=== PATIENT | female | born 1985 | race Caucasian/White ===

== ENCOUNTER 2021-08-18 20:18 | Emergency (ER) | payer OTHER, SELFPAY ==
[2021-08-18 20:22] VITALS: BP 107/60; PULSE 112; RESP 32; TEMP 37.8; O2SAT 100; BMI 33.0
--- NOTE | 2021-08-18 20:44 | XRR_ITS ---
PROCEDURE INFORMATION: Exam: XR Chest Exam date and time: 08/18/2021 8:44 PM Age: 35 years old Clinical indication: Shortness of breath; Additional info: SOB TECHNIQUE: Imaging protocol: XR of the chest. Views: 1 view. Total images: 1 COMPARISON: CT abdomen pelvis w con* [id number] 02/15/2016 2:27 AM FINDINGS: Lungs: Diminished inspiratory effort. No visible active interstitial or alveolar airspace disease. Pleural spaces: No visible pleural effusion. No pneumothorax. Heart/Mediastinum: Cardiac structures and configuration within normal limits. Bones/joints: Mild scoliotic curvature of the spine. Soft tissues: Heavy body habitus. XR/XR chest 1V [id number] IMPRESSION: Diminished inspiratory effort.
--- NOTE | 2021-08-18 20:44 | ECG_ITS ---
[facility] Test Date: 2021-08-18 Pat Name: Bertha Robles Department: Room: Gender: Female Box Toe Buffer: : 1985 Requested By: Jacinto Porras Order Number: [id number] Otis MD: Jai Richard M.D. Measurements Intervals [place] Rate: 110 P: 132 IN: 137 QRS: 186 QRSD: 89 T: 151 QT: 316 QTc: 428 Interpretive Statements SINUS TACHYCARDIA ARM LEADS REVERSED [INVERTED P AND QRS IN I] ABNORMAL RHYTHM ECG No previous ECG available for comparison Electronically Signed On 08-19-2021 14:14:45 LIBRARY CIRCULATION CLERK by Jai Richard M.D. [id number]
--- NOTE | 2021-08-18 20:45 | ED_ITS ---
HPI - Anxiety General: Chief Complaint: Anxiety Stated Complaint: anxiety Time Seen by Provider: 08/18/21 20:22 History of Present Illness: MD complaint: anxiety, heart racing and shortness of breath Onset (ago): hour(s) Symptoms: dyspnea and chest pain Severity: moderate Quality: constant Place: home History of similar episodes: No Relieving factors: medication (ativan by ems 2mg) Associated symptoms: Reports chest pain, chills, fever(s), nausea, short of breath and weakness (generalized); Deny vomiting Review of Systems Const: Reports: fever(s) and chills Card: Reports: chest pain Resp: Reports: dyspnea; Denies: productive cough, non-productive cough, wheezing or stridor GI: Reports: nausea; Denies: abdominal pain or vomiting Neuro: Reports: numbness in extremities PFSH ED PFSH: Surgical History History of cholecystectomy Family History Mother Hypertension Social History Smoking and tobacco status: former smoker Alcohol intake: never Marital status: Number of children: 3 Highest education level completed: Some College, No Degree Female Reproductive History: Date of last menstrual period: 07/31/19 Para: 3 Physical Exam Const: GENERAL APPEARANCE: cooperative and anxious; not frail appearing ORIENTATION/CONSCIOUSNESS: Yes awake, Yes oriented to person, Yes oriented to place and Yes oriented to time HENMT: COMMON NORMALS: normocephalic and atraumatic HEAD & SCALP: normocephalic and atraumatic Eye: COMMON NORMALS: Equal, round and reactive pupils present PUPIL: Yes Equal, round and reactive pupils present Chest: COMMONS NORMALS: normal inspection of the chest CHEST: No tenderness Resp: COMMON NORMALS: clear to auscultation bilaterally EFFORT & INSPECTION: Yes tachypneic, No respiratory distress and Yes uses accessory muscles AUSCULTATION: clear to auscultation bilaterally and lung sounds not diminished Cardio: COMMON NORMALS: regular rhythm RATE: tachycardic RHYTHM: regular rhythm GI: COMMON NORMALS: Normal to inspection, nondistended, normoactive bowel sounds present, Soft to palpation and non-tender PALPATION: Yes Soft to palpation Neuro: SENSORIUM/ORIENTATION: Yes oriented to person, Yes oriented to place and Yes oriented to time Course Vital Signs: Vital signs: Vital Signs Temperature 100.1 F H 08/18/21 20:22 Pulse Rate 82 08/18/21 22:38 Respiratory Rate 18 08/18/21 22:38 Blood Pressure 105/49 08/18/21 22:38 Pulse Oximetry 100 08/18/21 22:38 MDM - Anxiety MDM Narrative: Medical decision making narrative: 35-year-old female presenting hyperventilating. She states she began to have trouble breathing, has been congested today, and has not been able to get warm. She notes chills most of the day. She denies any significant cough. She has had some chest pain on and off. She was found to be hyperventilating with an end-tidal CO2 of 14 by EMS. Saturations are 100% on room air. She was given 2 mg of Ativan IV in the ambulance. This helped her symptoms to some degree. She is still very anxious, on arrival, hyperventilating with carpopedal spasm and circumoral pallor. She was given 3 mg of Haldol, with resolution of her symptoms essentially. She has been up to the bathroom, and has done well. Saturations remain 100%. She is no longer tachycardic. Her CBC is normal. Her potassium is 3.1. Her bicarbonate level is 16 on arrival. Her chest x-ray shows poor inspiration and is otherwise negative. Her D-dimer is essentially negative at 0.7 her temperature is 100.1. She is swab for COVID-19 by PCR, and will be discharged. Lab Data: Labs: Lab Results 08/18/21 08/18/21 08/18/21 20:59 20:59 20:59 WBC 5.2 10^3/uL 10^3/ uL (4.0-10.0) RBC 4.02 10^6/uL L 10 ^6/uL (4.1-5.3) Hgb 12.9 g/dL g/dL (11.5-15.3) Hct 37.1 % % (37.0-47.0) MCV 92.3 fl fl (81-99) MCH 32.1 pg pg (28.0-34.0) MCHC 34.8 g/dL g/dL (30.0-36.0) RDW 11.9 % L % (12.1-15.1) Plt Count 255 10^3/cmm 10^3 /cmm (130-400) MPV 11.1 fL H fL (7.4-10.4) Neut % (Auto) 69.5 % % Lymph % (Auto) 16.9 % % [place] % (Auto) 12.2 % % Eos % (Auto) 0.8 % % Baso % (Auto) 0.4 % % Neut # (Auto) 3.59 10^3/uL 10^3 /uL (1.8-7.7) Lymph # (Auto) 0.9 10^3/uL 10^3/ uL (0.8-4.8) [place] # (Auto) 0.6 10^3/uL 10^3/ uL (0.2-0.9) Eos # (Auto) 0.0 10^3/uL 10^3/ uL (0.0-0.8) Baso # (Auto) 0.0 10^3/uL 10^3/ uL (0.0-0.1) Nucleated RBC % (a uto) 0 % % Nucleated RBCs # 0.0 /100WBC /100W BC D-Dimer 0.76 ug/mIFEU H u g/mIFEU (0-0.59) Sodium 136 mmol/L mmol/L (136-145) Potassium 3.1 mmol/L L mmol /L (3.5-5.1) Chloride 100 mmol/L mmol/L (98-107) Carbon Dioxide 16 mmol/L L mmol/ L (22-29) Anion Gap 23.1 H (5-19) BUN 6 mg/dL mg/dL (6-20) Creatinine 0.9 mg/dL mg/dL (0.5-0.9) GFR Calculation 72.1 mL/min L mL/ min (90-130) Glucose 71 mg/dL mg/dL (65-115) Calculated Osmolal ity 278 mOsm/kg L mOs m/kg (285-295) Calcium 9.4 mg/dL mg/dL (8.5-10.5) Total Bilirubin 0.4 mg/dL mg/dL (0.15-1.2) AST 14 U/L U/L (0-32) ALT 10 U/L U/L (0-33) Alkaline Phosphata se 69 IU/L IU/L (35-105) Troponin T Gen 5 n g/L C-Reactive Protein 3.6 mg/L mg/L (0.0-4.9) Total Protein 6.4 g/dL L g/dL (6.6-8.7) Albumin 4.3 g/dL g/dL (3.5-5.2) Globulin 2.1 g/dL g/dL (1.3-4.6) HCG, Qual Urine Color Urine Appearance Urine pH Ur Specific Gravit y Urine Protein Urine Glucose (UA) Urine Ketones Urine Blood Urine Nitrate Urine Bilirubin Urine Urobilinogen Ur Leukocyte Akyli ase Urine Opiates Scre en Ur Barbiturates Sc reen Ur Phencyclidine S crn Ur Amphetamines Sc reen U Benzodiazepines Scrn Urine Cocaine Scre en U Marijuana (THC) Screen Coronavirus 229E ( PCR) SARS-CoV-2 (PCR) 08/18/21 08/18/21 08/18/21 20:59 20:59 21:19 WBC RBC Hgb Hct MCV MCH MCHC RDW Plt Count MPV Neut % (Auto) Lymph % (Auto) [place] % (Auto) Eos % (Auto) Baso % (Auto) Neut # (Auto) Lymph # (Auto) [place] # (Auto) Eos # (Auto) Baso # (Auto) Nucleated RBC % (a uto) Nucleated RBCs # D-Dimer Sodium Potassium Chloride Carbon Dioxide Anion Gap BUN Creatinine GFR Calculation Glucose Calculated Osmolal ity Calcium Total Bilirubin AST ALT Alkaline Phosphata se Troponin T Gen 5 n g/L 7 ng/L ng/L (0-10) C-Reactive Protein Total Protein Albumin Globulin HCG, Qual Negative (Negative) Urine Color Urine Appearance Urine pH Ur Specific Gravit y Urine Protein Urine Glucose (UA) Urine Ketones Urine Blood Urine Nitrate Urine Bilirubin Urine Urobilinogen Ur Leukocyte Kayli ase Urine Opiates Scre en Ur Barbiturates Sc reen Ur Phencyclidine S crn Ur Amphetamines Sc reen U Benzodiazepines Scrn Urine Cocaine Scre en U Marijuana (THC) Screen Coronavirus 229E ( PCR) Not detected (NOT DETECT) SARS-CoV-2 (PCR) Detected A (NOT DETECT) 08/18/21 08/18/21 22:49 22:49 WBC RBC Hgb Hct MCV MCH MCHC RDW Plt Count MPV Neut % (Auto) Lymph % (Auto) [place] % (Auto) Eos % (Auto) Baso % (Auto) Neut # (Auto) Lymph # (Auto) [place] # (Auto) Eos # (Auto) Baso # (Auto) Nucleated RBC % (a uto) Nucleated RBCs # D-Dimer Sodium Potassium Chloride Carbon Dioxide Anion Gap BUN Creatinine GFR Calculation Glucose Calculated Osmolal ity Calcium Total Bilirubin AST ALT Alkaline Phosphata se Troponin T Gen 5 n g/L C-Reactive Protein Total Protein Albumin Globulin HCG, Qual Urine Color Yellow (Yellow) Urine Appearance Clear (CLEAR) Urine pH 6 (5-7) Ur Specific Gravit y 1.005 (1.005-1.030) Urine Protein Neg (Negative) Urine Glucose (UA) Norm (Normal) Urine Ketones Negative (Negative) Urine Blood Neg (Negative) Urine Nitrate Negative (Negative) Urine Bilirubin Neg (Negative) Urine Urobilinogen Norm mg/dL mg/dL (Negative) Ur Leukocyte Kayli ase Negative (Negative) Urine Opiates Scre en Negative ng/mL ng /mL (Negative) Ur Barbiturates Sc reen Negative ng/mL ng /mL (Negative) Ur Phencyclidine S crn Negative ng/mL ng /mL (Negative) Ur Amphetamines Sc reen Negative ng/mL ng /mL (Negative) U Benzodiazepines Scrn Positive ng/mL H ng/mL (Negative) Urine Cocaine Scre en Negative ng/mL ng /mL (Negative) U Marijuana (THC) Screen Positive ng/mL H ng/mL (Negative) Coronavirus 229E ( PCR) SARS-CoV-2 (PCR) Discharge Plan Discharge Patient Disposition: Home Clinical Impression: Hyperventilation Upper respiratory tract infection Qualifiers: URI type: unspecified viral URI Qualified Code(s): J06.9 - Acute upper respiratory infection, unspecified Condition: Stable Prescriptions: New Medrol (Arnoldo) 4 mg tablets,dose pack See Rx Instructions .ROUTE .COMPLEX Qty: 21 RF: 0 albuterol sulfate 90 mcg/actuation HFA aerosol inhaler 2 inh INHALATION Q4H PRN (Reason: shortness of breath or wheezing) Qty: 6.7 RF: 1 No Action hydroxyzine HCl 25 mg tablet 25 mg PO BID PRN (Reason: anxiety) Qty: 30 RF: 0 wellbutrin PO RF: 0 triamcinolone acetonide 0.1 % cream 1 applic topical BID 7 Days Qty: 30 RF: 0 methylprednisolone [Medrol (Arnoldo)] 4 mg tablets,dose pack See Rx Instructions PO PER PKG DIR Qty: 21 RF: 0 Discharge Orders: Discharge ED (Routine); Ordered 08/18/21 Ordered By: Jacinto Ba Discharge Diet: Advance as tolerated Discharge Activity: Increase activity as tolerated Patient Instructions: Hyperventilation (ED), Upper Respiratory Infection (ED) Activity Restrictions/Additional Instructions: Return for return of chest pain, worsening shortness of breath despite treatment, inability to control temperature, other concerning symptoms. You have been tested for COVID-19 by PCR. This test takes a while to come back. If it is positive, you will get a call with further instructions. Coding Level of Care Code ED Paediatric Physiotherapist for Chg Fwd Exam Detailed
[2021-08-18] MEDS: haloperidol inj 5 mg/mL INJ 1 mL 3 MG IVP (20:50)
[2021-08-18 21:53] VITALS: BP 103/59; PULSE 109; RESP 13; O2SAT 98
[2021-08-18] MEDS: sodium chloride 0.9% 1,000 ML 999 ML IV (22:05)
[2021-08-18 22:18] LABS: Basophils % 0.4 %; Eosinophils % 0.8 %; Hematocrit 37.1 % (37.0-47.0); Hemoglobin 12.9 g/dL (11.5-15.3); Lymphocytes # 0.9 10^3/uL (0.8-4.8); Lymphocytes % 16.9 %; Mean Corpuscular HGB Conc 34.8 g/dL (30.0-36.0); Mean Corpuscular Hemoglobin 32.1 pg (28.0-34.0); Mean Corpuscular Volume 92.3 fl (81-99); Mean Platelet Volume 11.1 fL (7.4-10.4); Monocytes # 0.6 10^3/uL (0.2-0.9); Monocytes % 12.2 %; Neutrophils # 3.59 10^3/uL (1.8-7.7); Neutrophils % 69.5 %; Nucleated Red Blood Cells % 0 %; Platelet Count 255 10^3/cmm (130-400); Red Blood Count 4.02 10^6/uL (4.1-5.3); Red Cell Distribution Width 11.9 % (12.1-15.1); White Blood Count 5.2 10^3/uL (4.0-10.0)
[2021-08-18 22:23] LABS: HCG, Serum Qual Negative (Negative)
[2021-08-18] MEDS: acetaminophen 500 mg Tablet 1000 MG PO (22:24)
[2021-08-18 22:30] LABS: Troponin T (5th) Once 7 ng/L (0-10)
[2021-08-18 22:31] LABS: Alanine Aminotransferase 10 U/L (0-33); Albumin Level 4.3 g/dL (3.5-5.2); Alkaline Phosphatase 69 IU/L (35-105); Anion Gap 23.1 (5-19); Aspartate Amino Transferase 14 U/L (0-32); Blood Urea Nitrogen 6 mg/dL (6-20); C Reactive Protein 3.6 mg/L (0.0-4.9); Calcium 9.4 mg/dL (8.5-10.5); Carbon Dioxide 16 mmol/L (22-29); Chloride 100 mmol/L (98-107); Globulin 2.1 g/dL (1.3-4.6); Glomerular Filtration Rate 72.1 mL/min (90-130); Glucose 71 mg/dL (65-115); Osmolality Calculated 278 mOsm/kg (285-295); Potassium 3.1 mmol/L (3.5-5.1); Sodium 136 mmol/L (136-145); Total Bilirubin 0.4 mg/dL (0.15-1.2); Total Protein 6.4 g/dL (6.6-8.7)
[2021-08-18 22:36] LABS: D Dimer 0.76 ug/mIFEU (0-0.59)
[2021-08-18 22:38] VITALS: BP 105/49; PULSE 82; RESP 18; O2SAT 100
[2021-08-18 23:14] LABS: Add Urine Microscopic? NO; Charge for UA Resulting for Rev
[2021-08-18 23:22] LABS: Bilirubin Urine Neg (Negative); Blood Urine Neg (Negative); Glucose Urine UA Norm (Normal); Ketones Urine Negative (Negative); Leukocyte Esterase Urine Negative (Negative); Nitrate Urine Negative (Negative); Protein Urine Neg (Negative); Specific Gravity, Urine 1.005 (1.005-1.030); Urine Appearance Clear (CLEAR); Urine Color Yellow (Yellow); Urobilinogen Urine Norm (Negative); pH Urine 6 (5-7)
[2021-08-18 23:30] LABS: Amphetamines Screen Urine Negative (Negative); Barbiturates Screen Urine Negative (Negative); Benzodiazepines Screen Urine Positive (Negative); Cocaine Screen Urine Negative (Negative); Opiate Screen Urine Negative (Negative); PCP Screen Urine Negative (Negative); THC Screen Urine Positive (Negative)
[2021-08-19 00:01] LABS: Adenovirus Not Detected (NOT DETECT); Chlamydia Pneumoniae Not Detected (NOT DETECT); Coronavirus 229E,HKU1,NL63,OC4 Not Detected (NOT DETECT); Human Metapneumovirus Not Detected (NOT DETECT); Human Rhinovirus/Enterovirus Not Detected (NOT DETECT); Influenza A Not Detected (NOT DETECT); Influenza A H1 Not Detected (NOT DETECT); Influenza A H1-2009 Not Detected (NOT DETECT); Influenza A H3 Not Detected (NOT DETECT); Influenza B Not Detected (NOT DETECT); Mycoplasma Pneumoniae Not Detected (NOT DETECT); Parainfluenza Virus Type 1 Not Detected (NOT DETECT); Parainfluenza Virus Type 2 Not Detected (NOT DETECT); Parainfluenza Virus Type 3 Not Detected (NOT DETECT); Parainfluenza Virus Type 4 Not Detected (NOT DETECT); Respiratory Syncytial Virus A Not Detected (NOT DETECT); Respiratory Syncytial Virus B Not Detected (NOT DETECT); SARS-COV-2 Detected (NOT DETECT)
--- NOTE | 2021-08-19 08:42 | PC.NURSE ---
Left Voicemail, to return call
--- NOTE | 2021-08-19 09:37 | DCPLANNER ---
patient access manager had message to schedule an outpatient MCA infusion. patient access manager had order signed order faxed to centralized scheduling, who will call patient with appointment information.
--- NOTE | 2021-08-19 16:41 | PC.NURSE ---
Pt informed of COVID (+), and case management will set up COVID infusion
== END 2021-08-18 23:25 | disposition home or self-care (01) ==
PROVIDERS: Emergency Provider Emergency Medicine
DX: R06.4 Hyperventilation (principal); U07.1 COVID-19; Z87.891 Personal history of nicotine dependence
CPT/HCPCS: 71045; 80053; 80306; 81003; 84484; 84703; 85025; 85378; 86140; 87635; 93005; 96361; 96374; 99284; J1630; J7030

== ENCOUNTER → 2022-03-08 09:44 | Outpatient (BNVA) | payer OTHER, SELFPAY | PROVIDERS: PCP Family Medicine; Visit Provider Family Medicine | DX: Z34.90 Encounter for supervision of normal pregnancy, unspecified, unspecified trimester (principal); Z34.80 Encounter for supervision of other normal pregnancy, unspecified trimester | CPT/HCPCS: 80307; 81000; 81025; 84443; 85025; 85027; 86592; 86762; 86850; 86900; 87086; 87340; 87491; 87591; 87806 ==

== ENCOUNTER → 2022-03-09 11:31 | Outpatient (BNVA) | payer OTHER, SELFPAY | PROVIDERS: PCP Family Medicine; Visit Provider Family Medicine | DX: Z34.90 Encounter for supervision of normal pregnancy, unspecified, unspecified trimester (principal); Z34.80 Encounter for supervision of other normal pregnancy, unspecified trimester | CPT/HCPCS: 85025; 87624 ==

== ENCOUNTER 2022-03-16 09:51 | Emergency (ER) | payer OTHER, SELFPAY ==
[2022-03-16] VITALS (7 sets, daily range): BP systolic 98–119; BP diastolic 65–81; PULSE 97–117; RESP 16–22; TEMP 36.8–39; O2SAT 95–100; BMI 31.3
--- NOTE | 2022-03-16 10:15 | PC.NURSE ---
ERP notified of VS and temp no new orders at this time.
--- NOTE | 2022-03-16 10:34 | XR_ITS ---
WS: [id number] Portable AP upright chest, 03/16/2022 Clinical Data: sob Comparison: Portable chest, 08/18/2021. Findings: No nodules, masses or effusions are seen. The heart is normal. The pulmonary vascularity is not increased. No pneumonia or pneumothorax is seen. XR/XR chest 1V portable [id number] Impression: Negative chest.
[2022-03-16 13:03] LABS: Basophils % 0.2 %; Eosinophils % 0.3 %; Hematocrit 38.3 % (37.0-47.0); Lymphocytes # 0.4 10^3/uL (0.8-4.8); Lymphocytes % 6.1 %; Mean Corpuscular HGB Conc 33.9 g/dL (30.0-36.0); Mean Corpuscular Hemoglobin 32.7 pg (28.0-34.0); Mean Corpuscular Volume 96.2 fl (81-99); Mean Platelet Volume 10.3 fL (7.4-10.4); Monocytes # 0.5 10^3/uL (0.2-0.9); Neutrophils # 4.91 10^3/uL (1.8-7.7); Neutrophils % 85.1 %; Nucleated Red Blood Cells % 0 %; Platelet Count 241 10^3/cmm (130-400); Red Blood Count 3.98 10^6/uL (4.1-5.3); Red Cell Distribution Width 12.3 % (12.1-15.1); White Blood Count 5.8 10^3/uL (4.0-10.0)
[2022-03-16 13:13] LABS: Add Urine Microscopic? NO; Charge for UA Resulting for Rev
[2022-03-16 13:15] LABS: Lactate (Lactic Acid level) 0.7 mmol/L (0.5-2.2)
[2022-03-16 13:16] LABS: Alanine Aminotransferase 12 U/L (0-33); Albumin Level 4.2 g/dL (3.5-5.2); Alkaline Phosphatase 73 U/L (35-105); Anion Gap 17.6 (5-19); Aspartate Amino Transferase 18 U/L (0-32); Blood Urea Nitrogen 6 mg/dL (6-20); Carbon Dioxide 21 mmol/L (22-29); Chloride 97 mmol/L (98-107); Globulin 2.9 g/dL (1.3-4.6); Glomerular Filtration Rate 114.4 mL/min (90-130); Glucose 87 mg/dL (65-115); Osmolality Calculated 271 mOsm/kg (285-295); Potassium 3.6 mmol/L (3.5-5.1); Sodium 132 mmol/L (136-145); Total Bilirubin 0.3 mg/dL (0.15-1.2); Total Protein 7.1 g/dL (6.6-8.7)
[2022-03-16 13:17] LABS: Bilirubin Urine Neg (Negative); Blood Urine Neg (Negative); Glucose Urine UA Norm (Normal); Ketones Urine 2+ (Negative); Leukocyte Esterase Urine Negative (Negative); Nitrate Urine Negative (Negative); Protein Urine Neg (Negative); Specific Gravity, Urine 1.015 (1.005-1.030); Urine Appearance Clear (CLEAR); Urine Color Yellow (Yellow); Urobilinogen Urine 1 mg/dL (Negative); pH Urine 6 (5-7)
[2022-03-16 13:32] LABS: SARS Covid-2 Antigen Positive (Negative)
--- NOTE | 2022-03-16 14:49 | PC.NURSE ---
Patient a/o, placed on monitor when brought back to ER 4. Patient c/o feeling congested, not feeling well and has been weak. Patient states she has had a headache since 9 am. Placed in isolation due to positive covid test completed while in triage.
--- NOTE | 2022-03-16 15:04 | W.ED.COVID ---
HPI - COVID General: Chief Complaint: COVID symptoms Stated Complaint: SOB,chest pains, 13 weeks preg Time Seen by Provider: 03/16/22 14:51 Source: patient Mode of arrival: ambulatory Limitations: no limitations Triage information: Has fever, cough or shortness of breath. Exposure to COVID + person last 14 days History of Present Illness: This patient presents to the emergency department for concerns about possible COVID-19. She states she felt body aches and fever and chills yesterday. 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 She is normally in good health and takes no daily medications other than vitamins. She is approximately 13 weeks . She is A0. She denies pelvic pain, uterine cramping, vaginal bleeding. He states she has body aches decreased appetite and nausea. No cough or shortness of breath. No asthma history. He states she did have gestational diabetes with one of her pregnancies as well as thyroid problems but does not take any medication for either of those conditions chronically. MD complaint: reported COVID exposure COVID 19 common symptoms: positive fever(s), chills, body aches, headache(s), loss of sense of smell and/or taste, nasal congestion and nausea; negative non-productive cough, productive cough, dyspnea, throat pain, vomiting or diarrhea COVID 19 other sytmptoms: negative chest pain Severity: moderate Treatment prior to arrival: none COVID Results: SARS-CoV-2 Antigen (Rapid) Positive (Negative) H 03/16/22 13:05 SARS-CoV-2 (PCR) Detected (NOT DETECT) A 08/18/21 21:19 Coronavirus Type 229E (PCR) Not detected (NOT DETECT) 08/18/21 21:19 Review of Systems Const: Reports: fever(s), chills and body aches Eyes: Denies: change in vision ENMT: Reports: nasal congestion; Denies: throat pain or odynophagia Card: Denies: chest pain, palpitations or irregular heart rhythm Resp: Denies: dyspnea, productive cough or non-productive cough GI: Reports: nausea; Denies: abdominal pain, vomiting or diarrhea : Denies: flank pain, difficulty voiding, dysuria, urinary frequency or vaginal bleeding Musc: Denies: neck pain, back pain, extremity pain or extremity swelling Skin/Breast: Denies: rash Neuro: Reports: headache(s); Denies: numbness in extremities or weakness in extremities Endo: Denies: polyuria or polydipsia Marco/Lymph: Denies: easy bruising PFSH ED PFSH: Medical History Depression Hx of bipolar disorder Surgical History History of cholecystectomy Family History Mother Hypertension Social History Smoking and tobacco status: former smoker Alcohol intake: never Marital status: Number of children: 3 Highest education level completed: Some College, No Degree Female Reproductive History: Date of last menstrual period: 12/12/21 Para: 3 Physical Exam Narrative: EXAM NARRATIVE: Makes good eye contact. Appears ill but answers questions in a goal-directed fashion. Const: COMMON NORMALS: average body habitus and patient oriented x3 GENERAL APPEARANCE: cooperative HENMT: COMMON NORMALS: normocephalic, atraumatic, Normal nasal mucous membranes and turbinates present, moist oral mucous membranes and oropharynx normal HEAD & SCALP: normocephalic and atraumatic NOSE: Normal nasal mucous membranes and turbinates present Eye: COMMON NORMALS: Equal, round and reactive pupils present, EOMs intact bilaterally and conjunctivae normal CONJUNCTIVA: Yes conjunctivae normal PUPIL: Yes Equal, round and reactive pupils present Neck/C-Spine: COMMON NORMALS: full ROM, no lymphadenopathy, supple and no meningeal signs Chest: COMMONS NORMALS: normal inspection of the chest Resp: COMMON NORMALS: normal respiratory effort, No use of accessory muscles and clear to auscultation bilaterally EFFORT & INSPECTION: Yes able to speak in complete sentences AUSCULTATION: clear to auscultation bilaterally Cardio: COMMON NORMALS: regular rate, regular rhythm, No murmurs present (Cardio) and Peripheral pulses 2+ throughout RATE: regular rate RHYTHM: regular rhythm PERIPHERAL PULSES: Peripheral pulses 2+ throughout GI: COMMON NORMALS: Normal to inspection, nondistended, normoactive bowel sounds present, Soft to palpation, non-tender and no masses PALPATION: Yes Soft to palpation : COMMON NORMALS: Yes no CVA tenderness BLADDER/KIDNEY EXAM: Yes no CVA tenderness Back/Pelvis: COMMON NORMALS: no CVA tenderness, thoracic and lumbar spine normal to inspection, no thoracic nor lumbar tenderness and thoraco-lumbar ROM normal Extremity: COMMON NORMALS: normal to inspection, full ROM, capillary refill normal, no clubbing, cyanosis or edema, no calf tenderness and no pedal edema Neuro: COMMON NORMALS: patient oriented x3, moves all extremities, no focal motor deficits and no sensory deficits noted MENINGEAL SIGNS: Yes no meningeal signs CRANIAL NERVES: Yes CN normal except as noted SPEECH: speech normal Psych: COMMON NORMALS: mental status grossly normal Skin: COMMON NORMALS: no rashes or lesions noted, turgor normal, no jaundice and no petechiae GENERAL SKIN EXAM: no rashes or lesions noted and turgor normal Course Reevaluation(s): Reevaluation #1: Patient states she feels considerably better after IV fluids, oral hydration and acetaminophen. She appears to be much more engaged and a improved clinical appearance. Vital signs are noted to be very reassuring with improved blood pressure, decreased heart rate, maintaining O2 saturation. Bedside ultrasound was used to visualize uterus. She was able to visualize a single intrauterine gestation using the phased array probe. heart tones were noted to be in the 1 30-1 50 range. Very active and what appeared to be a normal appearing fetus on a limited ultrasound. We discussed pack paxlovid risk-benefit profile. She voiced understanding of our discussion but declined medication at this time. She prefers symptomatic treatment at home. At this time she is stable and improved and suitable to be monitor at home with return precautions. Time: 16:47 Consultations: Consultation #1: I discussed with Dr. Montoya who provides her OB care. We reviewed her current clinical presentation and potential indications for pack Slo-Bid. He is not opposed to using that medication and is supportive of its use in with significant illness. Time: 15:32 Vital Signs: Vital signs: Vital Signs Temperature 98.9 F 03/16/22 14:11 Pulse Rate 103 H 03/16/22 14:11 Respiratory Rate 16 03/16/22 14:11 Blood Pressure 98/68 03/16/22 14:52 Pulse Oximetry 95 03/16/22 14:53 Oxygen Delivery Me thod 03/16/22 14:53 MDM - COVID Medical Decision Making 36-year-old G4 para 3 at 13 weeks positive for COVID-19. She was evaluated and given IV fluids and transition to p.o. intake acetaminophen for body aches and headache. Clinically stable and improved. Discussion was had regarding monoclonal antibody treatment which she declined at this time. Her OB provider was also consulted during this ED visit. Stable for outpatient treatment. Medical Records I reviewed the patient's medical records. Lab Data I reviewed the patient's lab results. : 03/16/22 12:47 03/16/22 12:47 Radiology Impressions Chest X-Ray 03/16/22 10:34 Impression: Negative chest. Laboratory Results WBC 5.8 10^3/uL (4.0-10.0) 03/16/22 12:47 RBC 3.98 10^6/uL (4.1-5.3) L 03/16/22 12:47 Hgb 13.0 g/dL (11.5-15.3) 03/16/22 12:47 Hct 38.3 % (37.0-47.0) 03/16/22 12:47 MCV 96.2 fl (81-99) 03/16/22 12:47 MCH 32.7 pg (28.0-34.0) 03/16/22 12:47 MCHC 33.9 g/dL (30.0-36.0) 03/16/22 12:47 RDW 12.3 % (12.1-15.1) 03/16/22 12:47 Plt Count 241 10^3/cmm (130-400) 03/16/22 12:47 MPV 10.3 fL (7.4-10.4) 03/16/22 12:47 Neut % (Auto) 85.1 % 03/16/22 12:47 Lymph % (Auto) 6.1 % 03/16/22 12:47 [place] % (Auto) 8.0 % 03/16/22 12:47 Eos % (Auto) 0.3 % 03/16/22 12:47 Baso % (Auto) 0.2 % 03/16/22 12:47 Neut # (Auto) 4.91 10^3/uL (1.8-7.7) 03/16/22 12:47 Lymph # (Auto) 0.4 10^3/uL (0.8-4.8) L 03/16/22 12:47 [place] # (Auto) 0.5 10^3/uL (0.2-0.9) 03/16/22 12:47 Eos # (Auto) 0.0 10^3/uL (0.0-0.8) 03/16/22 12:47 Baso # (Auto) 0.0 10^3/uL (0.0-0.1) 03/16/22 12:47 Nucleated RBC % (auto) 0 % 03/16/22 12:47 Nucleated RBCs # 0.0 /100WBC 03/16/22 12:47 Sodium 132 mmol/L (136-145) L 03/16/22 12:47 Potassium 3.6 mmol/L (3.5-5.1) 03/16/22 12:47 Chloride 97 mmol/L (98-107) L 03/16/22 12:47 Carbon Dioxide 21 mmol/L (22-29) L 03/16/22 12:47 Anion Gap 17.6 (5-19) 03/16/22 12:47 BUN 6 mg/dL (6-20) 03/16/22 12:47 Creatinine 0.6 mg/dL (0.5-0.9) 03/16/22 12:47 GFR Calculation 114.4 mL/min (90-130) 03/16/22 12:47 Glucose 87 mg/dL (65-115) 03/16/22 12:47 Calculated Osmolality 271 mOsm/kg (285-295) L 03/16/22 12:47 Lactate 0.7 mmol/L (0.5-2.2) 03/16/22 12:47 Calcium 9.0 mg/dL (8.5-10.5) 03/16/22 12:47 Total Bilirubin 0.3 mg/dL (0.15-1.2) 03/16/22 12:47 AST 18 U/L (0-32) 03/16/22 12:47 ALT 12 U/L (0-33) 03/16/22 12:47 Alkaline Phosphatase 73 U/L (35-105) 03/16/22 12:47 Total Protein 7.1 g/dL (6.6-8.7) 03/16/22 12:47 Albumin 4.2 g/dL (3.5-5.2) 03/16/22 12:47 Globulin 2.9 g/dL (1.3-4.6) 03/16/22 12:47 Urine Color Yellow (Yellow) 03/16/22 13:00 Urine Appearance Clear (CLEAR) 03/16/22 13:00 Urine pH 6 (5-7) 03/16/22 13:00 Ur Specific [place] 1.015 (1.005-1.030) 03/16/22 13:00 Urine Protein Neg (Negative) 03/16/22 13:00 Urine Glucose (UA) Norm (Normal) 03/16/22 13:00 Urine Ketones 2+ (Negative) H 03/16/22 13:00 Urine Blood Neg (Negative) 03/16/22 13:00 Urine Nitrate Negative (Negative) 03/16/22 13:00 Urine Bilirubin Neg (Negative) 03/16/22 13:00 Urine Urobilinogen 1 mg/dL (Negative) H 03/16/22 13:00 Ur Leukocyte Esterase Negative (Negative) 03/16/22 13:00 SARS-CoV-2 Ag (Rapid) Positive (Negative) H 03/16/22 13:05 SARS-CoV-2 Antigen (Rapid) Positive (Negative) H 03/16/22 13:05 SARS-CoV-2 (PCR) Detected (NOT DETECT) A 08/18/21 21:19 Coronavirus Type 229E (PCR) Not detected (NOT DETECT) 08/18/21 21:19 Discharge Plan Discharge Patient Disposition: Home Clinical Impression: COVID-19, First trimester Condition: Stable Prescriptions: No Action Flintstones Plus Iron 15 mg iron Tablet,Chewable 2 tab PO DAILY Gummies 400 mcg-35 mg- 25 mg-5 mg Tablet,Chewable 2 tab PO DAILY Discharge Orders: Discharge ED (Routine); Ordered 03/16/22 Ordered By: Orville Roldan Referrals: Vern Montoya MD [Primary Care Provider] - Discharge Diet: Advance as tolerated Discharge Activity: Increase activity as tolerated Patient Instructions: COVID-19 (Coronavirus Disease 2019) (ED), Opioid Safety Activity Restrictions/Additional Instructions: Make sure you are drinking at least 2 quarts of fluid to include such things as water, half-strength apple juice, sports drinks daily. Kwong to a regular diet as tolerated. 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 Follow-up with the recommended isolation for COVID-19 on the CDC website. Coding Level of Care Code ED Integration Software Engineer for Lucian Fwd Exam Comprehensive
[2022-03-16] MEDS: sodium chloride 0.9% 1,000 ML 999 ML IV (15:37)
[2022-03-16] MEDS: acetaminophen 325 mg Tablet 650 MG PO (15:37)
[2022-03-16] MEDS: ondansetron 2 mg/ML SDV 2 mL 4 MG IVP (15:37)
--- NOTE | 2022-03-16 17:19 | ED_ITS ---
HPI - COVID General: Chief Complaint: COVID symptoms Stated Complaint: SOB,chest pains, 13 weeks preg Time Seen by Provider: 03/16/22 14:51 Source: patient Mode of arrival: ambulatory Limitations: no limitations Triage information: Has fever, cough or shortness of breath . Exposure to COVID + person last 14 days History of Present Illness: Severity: moderate COVID Results: SARS-CoV-2 Antigen (Rapid) Positive (Negative) H 03/16/22 13:0 5 SARS-CoV-2 (PCR) Detected (NOT DETECT) A 08/18/21 21:19 Coronavirus Type 229E (PCR) Not detected (NOT DETECT) 08/18/21 21:19 [facility] ED PFSH: Medical History Depression Hx of bipolar disorder Surgical History History of cholecystectomy Family History Mother Hypertension Social History Smoking and tobacco status: former smoker Alcohol intake: never Marital status: Number of children: 3 Highest education level completed: Some College, No Degree Female Reproductive History: Date of last menstrual period: 12/12/21 Para: 3 Course Vital Signs: Vital signs: Vital Signs Temperature 98.9 F 03/16/22 14:11 Pulse Rate 103 H 03/16/22 14:11 Respiratory Rate 16 03/16/22 14:11 Blood Pressure 98/68 03/16/22 14:52 Pulse Oximetry 95 03/16/22 14:53 Oxygen Delivery Me thod 03/16/22 14:53 MDM - COVID Lab Data : 03/16/22 12:47 03/16/22 12:47 Radiology Impressions Chest X-Ray 03/16/22 10:34 Impression: Negative chest. Laboratory Results WBC 5.8 10^3/uL (4.0-10.0) 03/16/22 12:47 RBC 3.98 10^6/uL (4.1-5.3) L 03/16/22 12:47 Hgb 13.0 g/dL (11.5-15.3) 03/16/22 12:47 Hct 38.3 % (37.0-47.0) 03/16/22 12:47 MCV 96.2 fl (81-99) 03/16/22 12:47 MCH 32.7 pg (28.0-34.0) 03/16/22 12:47 MCHC 33.9 g/dL (30.0-36.0) 03/16/22 12:47 RDW 12.3 % (12.1-15.1) 03/16/22 12:47 Plt Count 241 10^3/cmm (130-400) 03/16/22 12:47 MPV 10.3 fL (7.4-10.4) 03/16/22 12:47 Neut % (Auto) 85.1 % 03/16/22 12:47 Lymph % (Auto) 6.1 % 03/16/22 12:47 [place] % (Auto) 8.0 % 03/16/22 12:47 Eos % (Auto) 0.3 % 03/16/22 12:47 Baso % (Auto) 0.2 % 03/16/22 12:47 Neut # (Auto) 4.91 10^3/uL (1.8-7.7) 03/16/22 12:47 Lymph # (Auto) 0.4 10^3/uL (0.8-4.8) L 03/16/22 12:47 [place] # (Auto) 0.5 10^3/uL (0.2-0.9) 03/16/22 12:47 Eos # (Auto) 0.0 10^3/uL (0.0-0.8) 03/16/22 12:47 Baso # (Auto) 0.0 10^3/uL (0.0-0.1) 03/16/22 12:47 Nucleated RBC % (auto) 0 % 03/16/22 12:47 Nucleated RBCs # 0.0 /100WBC 03/16/22 12:47 Sodium 132 mmol/L (136-145) L 03/16/22 12:47 Potassium 3.6 mmol/L (3.5-5.1) 03/16/22 12:47 Chloride 97 mmol/L (98-107) L 03/16/22 12:47 Carbon Dioxide 21 mmol/L (22-29) L 03/16/22 12:47 Anion Gap 17.6 (5-19) 03/16/22 12:47 BUN 6 mg/dL (6-20) 03/16/22 12:47 Creatinine 0.6 mg/dL (0.5-0.9) 03/16/22 12:47 GFR Calculation 114.4 mL/min (90-130) 03/16/22 12:47 Glucose 87 mg/dL (65-115) 03/16/22 12:47 Calculated Osmolality 271 mOsm/kg (285-295) L 03/16/22 12:47 Lactate 0.7 mmol/L (0.5-2.2) 03/16/22 12:47 Calcium 9.0 mg/dL (8.5-10.5) 03/16/22 12:47 Total Bilirubin 0.3 mg/dL (0.15-1.2) 03/16/22 12:47 AST 18 U/L (0-32) 03/16/22 12:47 ALT 12 U/L (0-33) 03/16/22 12:47 Alkaline Phosphatase 73 U/L (35-105) 03/16/22 12:47 Total Protein 7.1 g/dL (6.6-8.7) 03/16/22 12:47 Albumin 4.2 g/dL (3.5-5.2) 03/16/22 12:47 Globulin 2.9 g/dL (1.3-4.6) 03/16/22 12:47 Urine Color Yellow (Yellow) 03/16/22 13:00 Urine Appearance Clear (CLEAR) 03/16/22 13:00 Urine pH 6 (5-7) 03/16/22 13:00 Ur Specific [place] 1.015 (1.005-1.030) 03/16/22 13:00 Urine Protein Neg (Negative) 03/16/22 13:00 Urine Glucose (UA) Norm (Normal) 03/16/22 13:00 Urine Ketones 2+ (Negative) H 03/16/22 13:00 Urine Blood Neg (Negative) 03/16/22 13:00 Urine Nitrate Negative (Negative) 03/16/22 13:00 Urine Bilirubin Neg (Negative) 03/16/22 13:00 Urine Urobilinogen 1 mg/dL (Negative) H 03/16/22 13:00 Ur Leukocyte Esterase Negative (Negative) 03/16/22 13:00 SARS-CoV-2 Ag (Rapid) Positive (Negative) H 03/16/22 13:05 SARS-CoV-2 Antigen (Rapid) Positive (Negative) H 03/16/22 13:0 5 SARS-CoV-2 (PCR) Detected (NOT DETECT) A 08/18/21 21:19 Coronavirus Type 229E (PCR) Not detected (NOT DETECT) 08/18/21 21:19 Discharge Plan Discharge Patient Disposition: Home Clinical Impression: COVID-19, First trimester Condition: Stable Prescriptions: No Action Flintstones Plus Iron 15 mg iron Tablet,Chewable 2 tab PO DAILY Gummies 400 mcg-35 mg- 25 mg-5 mg Tablet,Chewable 2 tab PO DAILY Discharge Orders: Discharge ED (Routine); Ordered 03/16/22 Ordered By: Orville Roldan Referrals: Vern Montoya MD [Primary Care Provider] - Discharge Diet: Advance as tolerated Discharge Activity: Increase activity as tolerated Patient Instructions: COVID-19 (Coronavirus Disease 2019) (ED), Opioid Safety Activity Restrictions/Additional Instructions: Make sure you are drinking at least 2 quarts of fluid to include such things as water, half-strength apple juice, sports drinks daily. Kwong to a regular diet as tolerated. If you develop vaginal bleeding, pelvic pain, shortness of breath, any other concerns return to this or the nearest emergency department otherwise follow-up with your watch and clock repairer as scheduled. Follow-up with the recommended isolation for COVID-19 on the CDC website. Coding Level of Care Code ED Specialist Field Engineer for Lucian [employer]
--- NOTE | 2022-03-16 17:50 | PC.NURSE ---
Discharge instructions reviewed with patient including following cdc guidelines for covid, bedside us completed by doctor and patient expressed assurance that all was well as she had previously expressed concern about little movement. INT dc'd and patient ambulated out. Personal belongings sent with patient.
== END 2022-03-16 17:54 | disposition home or self-care (01) ==
PROVIDERS: Emergency Medicine; Emergency Provider Emergency Medicine; PCP Family Medicine
DX: O98.511 Other viral diseases complicating pregnancy, first trimester (principal); U07.1 COVID-19; Z3A.13 13 weeks gestation of pregnancy; Z87.891 Personal history of nicotine dependence
CPT/HCPCS: 36415; 71045; 80053; 81003; 83605; 85025; 87426; 96374; 99284; J2405; J7030

== ENCOUNTER → 2022-04-06 09:47 | Outpatient (BNVA) | payer OTHER, SELFPAY | PROVIDERS: PCP Family Medicine; Visit Provider Family Medicine | DX: Z34.80 Encounter for supervision of other normal pregnancy, unspecified trimester; U07.1 COVID-19 | CPT/HCPCS: 80307; 85025; 85027 ==

== ENCOUNTER → 2022-04-30 12:47 | Outpatient (BNVA) | payer OTHER, SELFPAY | PROVIDERS: PCP Family Medicine; Visit Provider Family Medicine | DX: R30.0 Dysuria (principal); I10 Essential (primary) hypertension; Z34.80 Encounter for supervision of other normal pregnancy, unspecified trimester | CPT/HCPCS: 81000; 82570; 84156 ==

== ENCOUNTER → 2022-05-03 12:05 | Outpatient (BNVA) | payer OTHER, SELFPAY | PROVIDERS: PCP Family Medicine; Visit Provider Family Medicine | DX: Z34.80 Encounter for supervision of other normal pregnancy, unspecified trimester (principal) | CPT/HCPCS: 76805 ==

== ENCOUNTER → 2022-05-31 11:07 | Outpatient (BNVA) | payer OTHER, SELFPAY | PROVIDERS: PCP Family Medicine; Visit Provider Family Medicine | DX: Z34.92 Encounter for supervision of normal pregnancy, unspecified, second trimester (principal); Z3A.24 24 weeks gestation of pregnancy | CPT/HCPCS: 76816 ==

== ENCOUNTER → 2022-06-04 08:56 | Outpatient (BNVA) | payer OTHER, SELFPAY | PROVIDERS: PCP Family Medicine; Visit Provider Family Medicine | DX: Z34.80 Encounter for supervision of other normal pregnancy, unspecified trimester (principal); Z51.81 Encounter for therapeutic drug level monitoring; R79.89 Other specified abnormal findings of blood chemistry | CPT/HCPCS: 82950; 83540; 84443; 85025 ==

== ENCOUNTER → 2022-06-27 08:09 | Outpatient (BNVA) | payer OTHER, SELFPAY | PROVIDERS: Visit Provider Family Medicine | DX: Z34.80 Encounter for supervision of other normal pregnancy, unspecified trimester (principal); R79.89 Other specified abnormal findings of blood chemistry; O99.810 Abnormal glucose complicating pregnancy | CPT/HCPCS: 82951; 82952 ==

== ENCOUNTER 2022-07-27 08:05 | Outpatient (CLI) | payer OTHER, SELFPAY ==
--- NOTE | 2022-07-27 08:09 | US_ITS ---
WS: [id number] LIMITED OBSTETRICAL ULTRASOUND HISTORY: Gestational diabetes. COMPARISON: 05/03/2022, 05/31/2022 Presentation: Breech. Cervix: Closed and normal length. Placenta: Posterior, no previa or abruption. Grade: 1 HEART: FHR of 160 BPM. measurements: BPD = 8.1 cm = 32w3d; 32nd percentile. HC = 30.3 cm = 33w5d; 33rd percentile. AC = 28.5 cm = 32w3d; 39th percentile. FL = 6.4 cm = 33w0d; 42nd percentile. YUE: 14.8 cm EFW: 2045 g; 55th %. AGA by ultrasound: 32w6d FLAKITA by ultrasound: 09/15/2022 US/US OB limited [id number] IMPRESSION: 1. Single intrauterine gestation of 32 weeks 6 days with an EDC of 09/15/2022. Appropriate growth since the ultrasound of 05/03/2022. 2. No growth asymmetry. 3. Estimated weight at the 55th percentile for age. 4. Breech.
== END 2022-07-27 08:06 | disposition home or self-care (01) ==
LOC: RAD 08:05
PROVIDERS: PCP Family Medicine; Visit Provider Family Medicine
DX: O24.419 Gestational diabetes mellitus in pregnancy, unspecified control (principal); Z3A.32 32 weeks gestation of pregnancy; O32.1XX0 Maternal care for breech presentation, not applicable or unspecified
CPT/HCPCS: 76815

== ENCOUNTER 2022-08-22 09:07 | Outpatient (CLI) | payer OTHER, SELFPAY ==
--- NOTE | 2022-08-22 09:37 | US_ITS ---
WS: [id number] BIOPHYSICAL PROFILE AMNIOTIC FLUID HISTORY: Gestational DM. YUE BPP COMPARISON: 07/27/2022 Cardiac activity: 150 bpm. Cervix: Not well visualized. Placenta: Posterior, no previa or abruption. Placenta grade: 2 position: Breech. Parameters are as follows: Breathin Movement: 2 Tone: 2 Fluid volume: 2 Amniotic fluid index: 20.3 cm; deep is a vertical pocket is 7.6 cm. US/US OB BPP NST [id number] IMPRESSION: 1. Biophysical profile score: 8/8. 2. Normal amniotic fluid index. 3. Breech position.
== END 2022-08-22 09:08 | disposition home or self-care (01) ==
LOC: RAD 09:08
PROVIDERS: PCP Family Medicine; Visit Provider Family Medicine
DX: O24.419 Gestational diabetes mellitus in pregnancy, unspecified control (principal); I10 Essential (primary) hypertension; Z3A.00 Weeks of gestation of pregnancy not specified
CPT/HCPCS: 76819

== ENCOUNTER → 2022-08-24 11:43 | Outpatient (BNVA) | payer OTHER, SELFPAY | PROVIDERS: PCP Family Medicine; Visit Provider Family Medicine | DX: Z34.80 Encounter for supervision of other normal pregnancy, unspecified trimester (principal) | CPT/HCPCS: 87081 ==

== ENCOUNTER 2022-08-30 21:21 | Inpatient (IN) | payer OTHER, SELFPAY ==
[2022-08-30] VITALS (13 sets, daily range): BP systolic 97–128; BP diastolic 56–80; PULSE 51–92; RESP 16–18; TEMP 36.6–37.1; O2SAT 98–100; BMI 33.8
--- NOTE | 2022-08-30 17:36 | USR_ITS ---
PROCEDURE INFORMATION: Exam: US , Limited Exam date and time: 08/30/2022 6:15 PM Age: 36 years old Clinical indication: complicated by abdominal or pelvic pain; Other: Bilateral pelvic cramping and contractions coming every 2-3 minutes all day. No vaginal bleeding. Note that patient is scheduled for attempted version tomorrow. Gestational age or lmp: 37 w 2 d; ; Additional info: Abdominal pain; malpresentation, rule out abruption, identify presentation LABS AND CLINICAL REPORTS: Last menstrual period start date: 12/12/2021 Gestational age (Established): 37 w 2 d Estimated due date (Established): 09/18/2022 TECHNIQUE: Imaging protocol: Real-time ultrasound of the maternal uterus with image documentation. Exam focused on the clinical indication. COMPARISON: US OB BPP wo NST [id number] 08/22/2022 9:49 AM FINDINGS: Gestation: Live intrauterine gestation. heart rate: 131 bpm presentation: Other:Stuart Breech with spine on materal LEFT. Placenta: Posterior and Right grade 1 placenta without previa. Amniotic fluid: Amniotic fluid volume is high, consistent with polyhydramnios. Amniotic fluid index: YUE is 25.3 cm. MATERNAL: Cervix: Cervical length measures 5.2 cm. US/US OB limited [id number] IMPRESSION: 1. No evidence of placental abruption. 2. Breech lie. 3. YUE measurements equals 25.3 cm consistent with polyhydramnios.
[2022-08-30] MEDS: acetaminophen 500 mg Tablet 1000 MG PO (17:46)
[2022-08-30 18:07] LABS: Protein Urine Neg (Negative); Urine Appearance Hazy (CLEAR); Urine Color Yellow (Yellow); pH Urine 8 (5-7)
[2022-08-30 18:08] LABS: Bilirubin Urine 1+ (Negative); Blood Urine Neg (Negative); Glucose Urine UA Norm (Normal); Ketones Urine 1+ (Negative); Leukocyte Esterase Urine 1+ (Negative); Nitrate Urine Negative (Negative); Sulfosalicylic Acid Urine Negative (Negative); Urobilinogen Urine 1 mg/dL (Negative)
[2022-08-30 18:38] LABS: Add Urine Culture? No; Bacteria Urine TRACE /hpf; RBC Urine RARE /hpf (0-2); Squamous Epithelial Cell Urine 0-4 /hpf (0-5)
--- NOTE | 2022-08-30 19:53 | PM.HP ---
Providers/Chief Complaint Admitting Physician: Vern Montoya MD Primary Care Provider: Vern Montoya MD Chief Complaint: abdominal and back pain History of Present Illness Bertha Robles is a 36 year old @ 37.2 weeks by LMP c/w 20 wk US. Preg is c/b prior baby with meconium aspiration with resp distress, h/o abnormal TSH, depression/anxiety currently off of medications, gDM - diet controlled. The patient presented to labor and delivery on the evening of 08/30/2022 with concerns for contractions and abdominal pain. The patient noted increased contractions starting on the evening of 08/29/2022. There were mild in nature but gradually increase in strength and by the evening of 08/30/2022, she felt that they were becoming quite painful. For this reason she presented to triage. In triage she was noted to be closed thick and high upon presentation. After 1 hour she changed to 1/thick/high. An ultrasound was done and the baby is noted to be in carolee breech positioning. The patient is having contractions every 2 to 4 minutes. She is uncomfortable with them. heart tones are in the mid 150s with moderate variability good accelerations with a category 1 tracing. The patient is nauseous and has had some diarrhea. She has some mild bloody show on exam. She is GBS positive. She has not had leakage of fluid. The patient denies fevers, however she does feel warm and flushed. She denies cough, constipation, dysuria. Medications/Allergies Home Medications Medication Instructions Recorded Confirmed Last Taken Type PNV 153-FA 400 mcg-om3 35 mg-dha 2 tab PO DAILY 03/16/22 08/24/22 Unknown History 25 mg-epa 5 mg-fish oil chew tablet ( Gummies) pediatric multivit no.17-ferrous 2 tab PO DAILY 03/16/22 08/24/22 Unknown History fumarate 15 mg iron chewable tablet blood-glucose meter #1 ea 06/29/22 08/24/22 Unknown Rx Allergies Allergy/AdvReac Type Severity Reaction Status Date / Time adhesive tape Allergy Mild rash Verified 08/30/22 20:01 PFSH Acute PFSH: Medical History Depression Hx of bipolar disorder Surgical History History of cholecystectomy Family History Mother Hypertension Denies family history of Colon cancer Ovarian cancer Diabetes Heart disease Hypercholesteremia Breast cancer Uterine cancer Thyroid disease Stroke Female Reproductive History: Date of last menstrual period: 12/12/21 : 4 Para: 3 Vitals/I&O/Wt Last Vital Signs Temp 98.8 F 08/30/22 17:09 Pulse 92 08/30/22 17:09 Resp 18 08/30/22 17:39 BP 114/80 08/30/22 17:09 Weight last 48 hrs Weight 216 lb Physical Exam Narrative: General: Alert and oriented x3 Eyes: Pupils equal round and reactive to light and accommodation Mouth: Mucous membranes moist, pharynx non-erythematous Cardiac: Regular rate and rhythm without murmurs Lungs: Clear to auscultation bilaterally without wheezes, crackles or rhonchi Abdomen: Soft, non-tender, fundus consistent with gestational age Extremities: +1 pitting edema in the bilateral lower extremities : 08/17/-3/breech, pink bloody show noted on glove. A&P Assessment and plan (1) Breech presentation: The patient has a confirmed carolee breech lie of her infant. She is ilir every 3 to 5 minutes and is in labor with cervical change. It is likely that the GI illness that she has has sent her into labor. Because she is in spontaneous labor and the is in the breech position, we will plan to proceed with a primary low-transverse section. The patient wishes to have a bilateral tubal ligation. She signed paperwork in the office previously. Discussion regarding possible risks of surgery was had with the patient and all questions were answered. The patient is in agreement with proceeding with a primary low-transverse section with bilateral tubal ligation. (2) Supervision of normal intrauterine in multigravida: (3) Gestational diabetes: (4) Gastroenteritis: (5) Positive GBS test: Attestations Medical Necessity Statement*: The patient will be here for greater than 2 midnights due to routine intrapartum and management of labor and delivery with section. Coding Level of Care Code Acute Code for Chg Fwd Diagnoses Breech presentation O32.1XX0 Supervision of normal intrauterine in multigravida Z34.80 Gestational diabetes O24.419 Gastroenteritis K52.9 Positive GBS test B95.1
[2022-08-30 20:00] LABS: Basophils % 0.1 %; Eosinophils # 0.1 10^3/uL (0.0-0.8); Eosinophils % 1.1 %; Hematocrit 36.2 % (37.0-47.0); Hemoglobin 12.1 g/dL (11.5-15.3); Lymphocytes # 1.7 10^3/uL (0.8-4.8); Lymphocytes % 24.2 %; Mean Corpuscular HGB Conc 33.4 g/dL (30.0-36.0); Mean Corpuscular Volume 92.8 fl (81-99); Mean Platelet Volume 11.1 fL (7.4-10.4); Monocytes # 0.5 10^3/uL (0.2-0.9); Monocytes % 6.8 %; Neutrophils # 4.76 10^3/uL (1.8-7.7); Neutrophils % 67.4 %; Nucleated Red Blood Cells % 0 %; Platelet Count 276 10^3/cmm (130-400); Red Cell Distribution Width 12.4 % (12.1-15.1); White Blood Count 7.1 10^3/uL (4.0-10.0)
--- NOTE | 2022-08-30 20:01 | P.ANESASSM_ITS ---
Pre-Anesthetic Assessment Height/Weight: Height 1.7 m Weight 97.976 kg Temp Pulse Resp BP 98.8 F 92 18 114/80 08/30/22 17:09 08/30/22 17:09 08/30/22 17:39 08/30/22 17:09 Preop Diagnosis: breech presentation section for breech presentation Familial anesthetic complications: none Was Beta Hola taken within 24 hours: N/A Was Clonidine taken within 24 hours: N/A Last intake: Intake Last Liquid Date 08/30/22 Last Liquid Time 13:00 Last Solid Date 08/30/22 Last Solid Time 13:00 Social No alcohol and No tobacco Airway Submandibular: within normal limits Cervical ROM: within normal limits Mallampati: Class I Dentition: full Pulmonary None reported CV/HEM None reported None reported Hepatic None reported GI Gastroesophageal Reflux Disease Nausea Metabolic Diabetes Mellitus Musc/skel None reported Neuropsych Bipolar Anesthetic Plan ASA status: 2 Anesthesia: Regional (specify below) Medications/Allergies Home Medications Medication Instructions Recorded Confirmed Last Taken Type blood-glucose meter #1 ea 06/29/22 08/30/22 Unknown Rx Allergies Allergy/AdvReac Type Severity Reaction Status Date / Time adhesive tape Allergy Mild rash Verified 08/30/22 20:01 [facility] Anesthesia Medical History Depression Hx of bipolar disorder Surgical History History of cholecystectomy Family History Mother Hypertension Denies family history of Colon cancer Ovarian cancer Diabetes Heart disease Hypercholesteremia Breast cancer Uterine cancer Thyroid disease Stroke Female Reproductive History Date of last menstrual period: 12/12/21 : 4 Para: 3 Data Anesthesia 08/30/22 19:40 Short CBC 08/30/22 Range/Units 19:40 WBC 7.1 (4.0-10.0) 10^3/uL Hgb 12.1 (11.5-15.3) g/dL Hct 36.2 L (37.0-47.0) % MCV 92.8 (81-99) fl Plt Count 276 (130-400) 10^3/cmm Neut % (Auto) 67.4 % Neut # (Auto) 4.76 (1.8-7.7) 10^3/uL Urine 08/30/22 Range/Units 17:40 Urine Color Yellow (Yellow) Urine Appearance Hazy A (CLEAR) Urine pH 8 H (5-7) Ur Specific [place] 1.020 (1.005-1.030) Urine Protein Neg (Negative) Urine Glucose (UA) Norm (Normal) Urine Ketones 1+ H (Negative) Urine Nitrate Negative (Negative) Urine Bilirubin 1+ H (Negative) Ur Leukocyte Esterase 1+ H (Negative) Urine RBC Rare (0-2) /hpf Urine WBC 5-10 H (0-5) /hpf Cardiac Studies: No Data to Display
[2022-08-30] MEDS: citric acid-sodium citrate 30 mL UDC PO (20:03)
[2022-08-30] MEDS: metoclopramide 5 mg/mL SDV 2 mL 10 MG IVP (20:03)
[2022-08-30] MEDS: lactated ringers 1,000 ML 999 ML IV (20:04)
[2022-08-30] MEDS: famotidine 20 mg/2 mL INJ IVP (20:04)
[2022-08-30] MEDS: ondansetron 2 mg/ML SDV 2 mL 4 MG IVP (20:08)
--- NOTE | 2022-08-30 22:47 | PM.OP ---
Operative Report Date of procedure: August 30, 2022 Pre-op diagnosis: 1. Intrauterine at 37.2 weeks gestation 2. Carolee breech presentation 3. Depression/anxiety 4. Gestational diabetes diet-controlled 5. Presenting in spontaneous labor 6. Polyhydramnios 7. Desiring sterilization Post-op diagnosis: 1. Intrauterine status post primary low-transverse section with bilateral tubal ligation at 37.2 weeks gestation 2. Carolee breech presentation 3. Depression/anxiety 4. Gestational diabetes diet-controlled 5. Presenting in spontaneous labor 6. Polyhydramnios 7. Delivery of healthy female weighing 6 pounds 5 ounces with Apgars of 8 and 8 Post-op findings: 1. Healthy female weighing 6 pounds 5 ounces with Apgars of 8 and 8 2. Intact placenta with central umbilical cord insertion site 3. Polyhydramnios 4. Mild endometriosis on the left ovary and fallopian tube Procedure done: 1. Primary low-transverse section 2. Bilateral tubal ligation Specimens removed/disposition: Placenta discarded Surgeon: Vern Montoya MD Estimated blood loss (mL): 600 IV fluids: 1 L Urine output: 50 mL Complications: None Brief History: Bertha Robles is a 36 year old G4 now P4 status post primary low-transverse section with bilateral tubal ligation@ 37.2 weeks by LMP c/w 20 wk US. Preg is c/b prior baby with meconium aspiration with resp distress, h/o abnormal TSH, depression/anxiety currently off of medications, gDM - diet controlled, carolee breech presentation, polyhydramnios. The patient presented to labor and delivery on the evening of 08/30/2022 with concerns for contractions and abdominal pain.? The patient noted increased contractions starting on the evening of 08/29/2022.? There were mild in nature but gradually increase in strength and by the evening of 08/30/2022, she felt that they were becoming quite painful.? For this reason she presented to triage.? In triage she was noted to be closed thick and high upon presentation.? After 1 hour she changed to 1/thick/high.? An ultrasound was done and the baby was noted to be in carolee breech positioning.? The patient is having contractions every 2 to 4 minutes.? She was uncomfortable with them.? heart tones were in the mid 150s with moderate variability good accelerations with a category 1 tracing.? The patient was nauseous and has had some diarrhea.? She had some mild bloody show on exam.? She was GBS positive.? She had not had leakage of fluid. The patient was taken back for a primary low-transverse section due to being in spontaneous labor with positioning in the carolee breech position. Procedure: After informed consent was obtained, the patient was taken to the operating room and the patient was prepped and draped in a normal sterile fashion in the dorsal supine position.? A spinal was placed and adequate anesthesia was obtained.? At 21:10 on 08/30/2022 a Pfannenstiel skin incision was made and carried through to the underlying layer of fascia using a scalpel.? The fascial incision was then extended laterally using curved Mayos.? The fascia was then grasped with Anders clamps and the underlying rectus muscles were dissected off taking care to avoid injury to the underlying tissues.? The peritoneum was entered bluntly with one digit.? It was then bluntly.? The bladder blade was placed and the vesicouterine peritoneum was well below the lower uterine segment of the uterus.? The uterine incision was made in the lower uterine segment in a transverse fashion with the scalpel at 21:17.? The amniotic membrane was entered bluntly and a very large amount of clear fluid was noted.? The was in the breech position. Uterine pressure was placed and the infant's buttocks and legs delivered with ease. Next the right arm was swept forward across her body and delivered. The left arm was then delivered in a similar manner. The head was then delivered using uterine pressure and the Smellie Veit maneuver. The infant delivered at 21:19 on 08/30/2022.? There was a cord wrapped around the 's shoulder and body.? The mouth and nose were suctioned.? The rest of the delivered without difficulty.? The infant took a breath immediately upon delivery.? The cord was clamped and cut and the was handed to the awaiting pediatric nurses.? The placenta was then manually expressed.? The uterus was exteriorized from the abdomen.? A wet lap was used to clear the uterus of clots and debris.? The bladder blade was reinserted and the uterine incision was closed using 0 chromic in a running locking fashion.? The uterus was noted to be firm.? A second layer of the same suture was used in the same manner.? A third layer was placed using the same suture in a similar manner. Excellent hemostasis was obtained. The bilateral fallopian tubes were located. Babcocks were used to raise the fallopian tube segment and a window was burned underneath the right fallopian tube. 0 chromic was used tie off a section of the tube on each side. A tube segment was removed using Metzenbaums. The remaining fallopian tube segment and was cauterized on each side. A modified Raemon technique was used. The fallopian tube segment was sent to pathology. This was repeated on the left side. Excellent hemostasis was noted. A small amount of endometrial tissue was noted over the left fallopian tube, ovary and ovarian artery and vein. There was significantly dilated vasculature directly underneath it and for this reason I felt that it was unsafe to cauterize at the time of the procedure. Next the posterior cul-de-sac was inspected and was cleared of any blood. The gutters were cleared of any further clots and debris and the uterine incision was again inspected and hemostasis was noted.? The subfascial tissue was inspected for hemostasis and the peritoneum was re-approximated using 2-0 plain in a running fashion.? The fascia was then re-approximated using 0 Vicryl in a running fashion.? The subcutaneous tissue was inspected for hemostasis.? Florentin's fascia was then re-approximated using 3-0 plain in a running fashion.? Good hemostasis was noted.? The subcutaneous tissue was then re-approximated using a subcuticular stitch.? The patient tolerated the procedure well and was recovered in stable condition.? Estimated blood loss was 600 mL. Urine in the Dorado catheter was clear. The patient was taken to recovery in good condition.
[2022-08-31] VITALS (15 sets, daily range): BP systolic 100–114; BP diastolic 63–80; PULSE 53–79; RESP 16–18; TEMP 36.6–37.1; O2SAT 96–100
[2022-08-31] MEDS: dextrose 5%-lactated ringers 1,000 ML 125 ML IV (04:06)
[2022-08-31] MEDS: ketorolac 30 mg/mL INJ IVP ×2 (05:02→11:13)
[2022-08-31] MEDS: prenatal vitamin Capsule 1 CAP PO (11:13)
[2022-08-31] MEDS: docusate sodium 100 mg Capsule PO ×2 (11:13→19:20)
[2022-08-31 11:33] LABS: Hematocrit 31.1 % (37.0-47.0); Hemoglobin 10.3 g/dL (11.5-15.3); Mean Corpuscular HGB Conc 33.1 g/dL (30.0-36.0); Mean Corpuscular Hemoglobin 31.9 pg (28.0-34.0); Mean Corpuscular Volume 96.3 fl (81-99); Mean Platelet Volume 10.6 fL (7.4-10.4); Platelet Count 222 10^3/cmm (130-400); Red Blood Count 3.23 10^6/uL (4.1-5.3); Red Cell Distribution Width 12.5 % (12.1-15.1); White Blood Count 7.1 10^3/uL (4.0-10.0)
[2022-08-31] MEDS: simethicone 80 mg Chew PO (14:29)
--- NOTE | 2022-08-31 15:51 | PM.PN ---
Subjective Subjective: The patient is doing well at this time. Her pain is well controlled. She is ambulating, voiding, passing gas and tolerating liquids by mouth. Her bleeding is decreasing well. She is breast-feeding and latching is starting to improve. She has no concerns at this time. Vitals/I&O/Wt Last Vital Signs Temp 97.9 F 08/31/22 04:12 Pulse 68 08/31/22 06:26 Resp 16 08/31/22 06:26 BP 108/64 08/31/22 06:26 Pulse Ox 96 08/31/22 06:26 O2 Del Method 08/31/22 06:26 08/31/22 08/31/22 08/31/22 06:59 14:59 22:59 Intake Total 1000 / 2000 Output Total 1000 / 1000 Balance 0 / 1000 Weight last 48 hrs Weight 216 lb Physical Exam Narrative: General: Alert and oriented x3 Cardiac: Regular rate and rhythm without murmurs Lungs: Clear to auscultation bilaterally without wheezes, crackles or rhonchi Abdomen: Soft, mild tenderness diffusely. Uterus is firm and 2 cm below the umbilicus. Incision is clean and dry without signs of infection or dehiscence. There is mild edema in the supra incisional region. Extremities: +1 pitting edema in the bilateral lower extremities. Urinary Catheter Management: Dorado Latex: Cath Placed During This Visit: yes, but has since been removed by the nurse Reason for Continuing Indwelling Catheter: Decision to DC Catheter Urinary Catheter Date of Insertion: 08/30/22 Urinary Catheter Time of Insertion: 20:26 Date Urinary Catheter Removed: 08/31/22 Time Urinary Catheter Discontinued: 08:30 Data 08/31/22 11:25 A&P Assessment and plan (1) Status post section: The patient is currently doing well after her section. Her pain is well controlled. She is ambulating, voiding, passing gas and tolerating food by mouth. Routine care precautions were discussed with the patient and all questions were answered. Continue with current plan of care and plan for continued hospitalization for pain management. Attestations Medical Necessity Statement*: The patient will be here for greater than 2 midnights due to routine intrapartum and management after section. Coding Level of Care Code Acute Code for Chg Fwd Diagnoses Status post section Z98.891
[2022-08-31] MEDS: oxyCODONE-APAP 5-325 mg Tablet PO (19:20)
[2022-08-31] MEDS: ibuprofen 800 mg tablet PO (22:15)
[2022-09-01 03:44] LABS: Glucose Point of Care 77 mg/dL (70-110)
[2022-09-01 04:46] VITALS: BP 103/67; PULSE 64; TEMP 35.9; O2SAT 97
[2022-09-01 06:00] VITALS: RESP 15
[2022-09-01] MEDS: oxyCODONE-APAP 5-325 mg Tablet PO ×2 (06:00→18:44)
--- NOTE | 2022-09-01 06:07 | PC.NURSE ---
mom in nursery with baby at this time.
--- NOTE | 2022-09-01 07:00 | PC.NURSE ---
mom in nursery with baby.
[2022-09-01] MEDS: prenatal vitamin Capsule 1 CAP PO (10:18)
[2022-09-01] MEDS: docusate sodium 100 mg Capsule PO ×2 (10:18→17:54)
[2022-09-01] MEDS: ibuprofen 800 mg tablet PO ×3 (10:19→22:59)
[2022-09-01 10:46] VITALS: BP 111/76; PULSE 95; RESP 18; TEMP 36.8; O2SAT 100
[2022-09-01] MEDS: lanolin oint 7 gm 1 APPLIC TOPICAL (10:47)
[2022-09-01] MEDS: acetaminophen 325 mg Tablet 650 MG PO (11:47)
--- NOTE | 2022-09-01 13:02 | PM.PN ---
Subjective Subjective: The patient is feeling well today. Her pain has gradually increased as the Duramorph wore off. Her pain is currently well controlled with medications however. She continues to ambulate, pass gas and tolerate food by mouth. She is able to void without complication. Vitals/I&O/Wt Last Vital Signs Temp 98.2 F 09/01/22 10:46 Pulse 95 09/01/22 10:46 Resp 18 09/01/22 10:46 BP 111/76 09/01/22 10:46 Pulse Ox 100 09/01/22 10:46 O2 Del Method 09/01/22 10:46 08/31/22 09/01/22 09/01/22 22:59 06:59 14:59 Intake Total 1999 1000 / 1000 Balance 1999 1000 / 999 Weight last 48 hrs Weight 216 lb Physical Exam Narrative: General: Alert and oriented x3 Cardiac: Regular rate and rhythm without murmurs Lungs: Clear to auscultation bilaterally without wheezes, crackles or rhonchi Abdomen: Soft, mild tenderness diffusely. Uterus is firm and 2 cm below the umbilicus. Incision is clean and dry without signs of infection or dehiscence. There is continued mild edema in the supra incisional region. Extremities: +2 pitting edema in the bilateral lower extremities. Urinary Catheter Management: Dorado Latex: Cath Placed During This Visit: yes, but has since been removed by the nurse Reason for Continuing Indwelling Catheter: Decision to DC Catheter Urinary Catheter Date of Insertion: 08/30/22 Urinary Catheter Time of Insertion: 20:26 Date Urinary Catheter Removed: 08/31/22 Time Urinary Catheter Discontinued: 08:30 Data 08/31/22 11:25 A&P Assessment and plan (1) Status post section: The patient is showing signs of improvement after section. Her pain is currently well controlled and her bleeding is decreasing well. She is ambulating, voiding and tolerating food by mouth. We will check to see how she does tomorrow and possibly discharge and room in tomorrow depending on her course. All questions were answered. Attestations Medical Necessity Statement*: The patient continues need inpatient care as she recovers after having a section on the late evening of 08/30/2022. Her stay will cross 2 midnights. Coding Level of Care Code Acute Code for Chg Fwd Diagnoses Status post section Z98.891
[2022-09-01 18:44] VITALS: RESP 17
[2022-09-01] MEDS: simethicone 80 mg Chew PO (22:59)
[2022-09-01 23:06] VITALS: BP 107/63; PULSE 74; RESP 16; TEMP 36.6; TEMP 36.7; O2SAT 98
[2022-09-02] MEDS: ibuprofen 800 mg tablet PO (09:41)
[2022-09-02] MEDS: prenatal vitamin Capsule 1 CAP PO (09:41)
[2022-09-02] MEDS: docusate sodium 100 mg Capsule PO (09:41)
[2022-09-02 09:43] VITALS: BP 125/77; PULSE 68; RESP 16; TEMP 37.1; O2SAT 98
--- NOTE | 2022-09-02 09:45 | PM.DCS ---
Discharge Providers Date of Admission: 08/30/22 21:21 Date of Discharge: September 02, 2022 Attending Provider at Admission: Vern Montoya MD Attending Provider at Discharge: Vern Montoya MD Primary Care Provider: Vern Montoya MD Diagnoses at Discharge Discharge Diagnosis (1) Status post section: Status: Acute Other Information Additional DC diagnoses/information: 1.? Intrauterine status post primary low-transverse section with bilateral tubal ligation at 37.2 weeks gestation 2.? Stuart breech presentation 3.? Depression/anxiety 4.? Gestational diabetes diet-controlled 5.? Presenting in spontaneous labor 6.? Polyhydramnios 7.? Delivery of healthy female weighing 6 pounds 5 ounces with Apgars of 8 and 8 Reason for Visit Reason for Visit: abdominal and back pain Brief History: Bertha Robles is a 36 year old G4 now P4 status post primary low-transverse section with bilateral tubal ligation@ 37.2 weeks by LMP c/w 20 wk US. Preg is c/b prior baby with meconium aspiration with resp distress, h/o abnormal TSH, depression/anxiety currently off of medications, gDM - diet controlled, stuart breech presentation, polyhydramnios. The patient presented to labor and delivery on the evening of 08/30/2022 with concerns for contractions and abdominal pain.? The patient noted increased contractions starting on the evening of 08/29/2022.? There were mild in nature but gradually increase in strength and by the evening of 08/30/2022, she felt that they were becoming quite painful.? For this reason she presented to triage.? In triage she was noted to be closed thick and high upon presentation.? After 1 hour she changed to 1/thick/high.? An ultrasound was done and the baby was noted to be in stuart breech positioning.? The patient is having contractions every 2 to 4 minutes.? She was uncomfortable with them.? heart tones were in the mid 150s with moderate variability good accelerations with a category 1 tracing.? The patient was nauseous and has had some diarrhea.? She had some mild bloody show on exam.? She was GBS positive.? She had not had leakage of fluid. Hospital Course Hospital Course The patient was taken back for a primary low-transverse section due to being in spontaneous labor with positioning in the stuart breech position. The patient had an uncomplicated primary low-transverse section with bilateral tubal ligation. she has done well. Her pain has been well controlled. She is ambulating, voiding, passing gas and tolerating food by mouth. We discussed care in detail and management of her incision site. All questions were answered. The patient is doing well at this time and we can discharge her today. The patient's is currently still hospitalized in the nursery so the patient will room-in. She will plan to follow-up with me in 2 weeks in 6 weeks . She will need a 2-hour glucose tolerance test done at 6 weeks . Physical Exam Narrative: General: Alert and oriented x3 Cardiac: Regular rate and rhythm without murmurs Lungs: Clear to auscultation bilaterally without wheezes, crackles or rhonchi Abdomen: Soft, mild tenderness diffusely. Uterus is firm and 2 cm below the umbilicus. Incision is clean and dry without signs of infection or dehiscence. There is continued mild edema in the supra incisional region. Extremities: +1 pitting edema in the bilateral lower extremities. Urinary Catheter Management: Dorado Latex: Cath Placed During This Visit: yes, but has since been removed by the nurse Reason for Continuing Indwelling Catheter: Decision to DC Catheter Urinary Catheter Date of Insertion: 08/30/22 Urinary Catheter Time of Insertion: 20:26 Date Urinary Catheter Removed: 08/31/22 Time Urinary Catheter Discontinued: 08:30 Discharge Data Studies Completed and Pending Completed Studies During Hospitalization Category Date Time Status US OB limited [id number] Stat Ultrasound 08/30/22 17:36 Completed Radiology Impressions Obstetrics Ultrasound 08/30/22 17:36 IMPRESSION: 1. No evidence of placental abruption. 2. Breech lie. 3. YUE measurements equals 25.3 cm consistent with polyhydramnios. Laboratory Results WBC 7.1 10^3/uL (4.0-10.0) 08/31/22 11:25 RBC 3.23 10^6/uL (4.1-5.3) L 08/31/22 11:25 Hgb 10.3 g/dL (11.5-15.3) L 08/31/22 11:25 Hct 31.1 % (37.0-47.0) L 08/31/22 11:25 MCV 96.3 fl (81-99) 08/31/22 11:25 MCH 31.9 pg (28.0-34.0) 08/31/22 11:25 MCHC 33.1 g/dL (30.0-36.0) 08/31/22 11:25 RDW 12.5 % (12.1-15.1) 08/31/22 11:25 Plt Count 222 10^3/cmm (130-400) 08/31/22 11:25 MPV 10.6 fL (7.4-10.4) H 08/31/22 11:25 Neut % (Auto) 67.4 % 08/30/22 19:40 Lymph % (Auto) 24.2 % 08/30/22 19:40 [place] % (Auto) 6.8 % 08/30/22 19:40 Eos % (Auto) 1.1 % 08/30/22 19:40 Baso % (Auto) 0.1 % 08/30/22 19:40 Neut # (Auto) 4.76 10^3/uL (1.8-7.7) 08/30/22 19:40 Lymph # (Auto) 1.7 10^3/uL (0.8-4.8) 08/30/22 19:40 [place] # (Auto) 0.5 10^3/uL (0.2-0.9) 08/30/22 19:40 Eos # (Auto) 0.1 10^3/uL (0.0-0.8) 08/30/22 19:40 Baso # (Auto) 0.0 10^3/uL (0.0-0.1) 08/30/22 19:40 Nucleated RBC % (auto) 0 % 08/30/22 19:40 Nucleated RBCs # 0.0 /100WBC 08/30/22 19:40 POC Glucose 77 mg/dL (70-110) 08/30/22 19:26 Urine Color Yellow (Yellow) 08/30/22 17:40 Urine Appearance Hazy (CLEAR) A 08/30/22 17:40 Urine pH 8 (5-7) H 08/30/22 17:40 Ur Specific [place] 1.020 (1.005-1.030) 08/30/22 17:40 Urine Protein Neg (Negative) 08/30/22 17:40 Urine Glucose (UA) Norm (Normal) 08/30/22 17:40 Urine Ketones 1+ (Negative) H 08/30/22 17:40 Urine Blood Neg (Negative) 08/30/22 17:40 Urine Nitrate Negative (Negative) 08/30/22 17:40 Urine Bilirubin 1+ (Negative) H 08/30/22 17:40 Prot Sulfosalicylic Acd Negative (Negative) 08/30/22 17:40 Urine Urobilinogen 1 mg/dL (Negative) H 08/30/22 17:40 Ur Leukocyte Esterase 1+ (Negative) H 08/30/22 17:40 Urine RBC Rare /hpf (0-2) 08/30/22 17:40 Urine WBC 5-10 /hpf (0-5) H 08/30/22 17:40 Ur Squamous Epith Cells 0-4 /hpf (0-5) H 08/30/22 17:40 Amorphous Sediment Not Reportable 08/30/22 17:40 Urine Bacteria Trace /hpf (NONE) 08/30/22 17:40 Vitals Last Vital Signs Temp 98.7 F 09/02/22 09:43 Pulse 68 09/02/22 09:43 Resp 16 09/02/22 09:43 BP 125/77 09/02/22 09:43 Pulse Ox 98 09/02/22 09:43 O2 Del Method 09/02/22 09:43 Discharge Plan Discharge Patient Disposition: Home Condition: Good Prescriptions: New oxycodone-acetaminophen 5-325 mg Tablet 1 tab PO Q6H PRN (Reason: Moderate To Severe Pain) Qty: 20 0RF ibuprofen 800 mg Tablet 800 mg PO TID Qty: 60 0RF ferrous sulfate 325 mg (65 mg iron) Tablet,Delayed Release (Dr/Ec) 325 mg PO BIDWM Qty: 30 0RF -U 106.5-1 mg Capsule 1 cap PO BREAKFAST Qty: 30 0RF No Action (DME) blood-glucose meter Kit See Rx Instructions .Route Qty: 1 0RF Rx Instructions: As directed Discharge Orders: Discharge Order (Routine); Ordered 09/02/22 Ordered By: Vern Montoya Referrals: Vern Montoya MD [Primary Care Provider] - 2 weeks Discharge Diet: Regular Discharge Activity: Limit activity as instructed Patient Instructions: Depression (DC), Bleeding (DC), Preeclampsia and Eclampsia After Delivery (GEN), (DC), Tubal Ligation (DC), OB Discharge Report, OB Food/Drug Interaction Guide, Opioid Safety, OB Your [facility] - [facility] Activity Restrictions/Additional Instructions: Do not lift anything heavier than your in the car seat for the first 3 weeks, then gradually increase. No driving for 2 weeks. Nothing per vagina for 6 weeks. If you have any concern for infection in your incision site, please contact Dr. Montoya right away. Discharge Attestations Time Spent in Discharge Care*: greater than 30 min Quality Metrics Clinical Quality Measures [ No reported AMI, CVA or VTE this stay] Coding Level of Care Code Acute Code for Chg Fwd Diagnoses Status post section Z98.891
[2022-09-02 14:16] VITALS: BP 125/77; PULSE 68; RESP 16; TEMP 37.1; O2SAT 98
== END 2022-09-02 14:17 | disposition home or self-care (01) | DRG 785 ==
LOC: OPOB 21:21 → OBGYN 21:21
PROVIDERS: Admitting Provider Family Medicine; PCP Family Medicine; Visit Provider Family Medicine
PROC: 10D00Z1 Extraction of Products of Conception, Low, Open Approach (ICD-10-PCS; CPT 59514; principal; 2022-08-30 20:45)
DX: O32.1XX0 Maternal care for breech presentation, not applicable or unspecified (principal); O99.344 Other mental disorders complicating childbirth; O24.420 Gestational diabetes mellitus in childbirth, diet controlled; O99.824 Streptococcus B carrier state complicating childbirth; O40.3XX0 Polyhydramnios, third trimester, not applicable or unspecified; Z3A.37 37 weeks gestation of pregnancy; Z37.0 Single live birth; F41.8 Other specified anxiety disorders; Z87.891 Personal history of nicotine dependence; Z30.2 Encounter for sterilization; O75.89 Other specified complications of labor and delivery; K52.9 Noninfective gastroenteritis and colitis, unspecified
CPT/HCPCS: 36415; 36416; 51702; 59025; 59409; 76815; 81001; 82962; 85025; 85027; 88302; 96374; 96376; 99211; J1885; J2274; J2405; J2590; J2765; J3010; J3490; J7030; J7120; J7121

== ENCOUNTER → 2023-07-24 09:13 | Outpatient (BNVA) | payer OTHER, SELFPAY | PROVIDERS: PCP Family Medicine; Visit Provider Family Medicine Adult Medicine | DX: Z20.822 Contact with and (suspected) exposure to COVID-19 (principal) | CPT/HCPCS: 87426 ==

== ENCOUNTER → 2023-07-30 14:35 | Outpatient (BNVA) | payer OTHER, SELFPAY | PROVIDERS: PCP Family Medicine; Visit Provider Family Medicine | DX: R30.0 Dysuria (principal) | CPT/HCPCS: 81000; 87086 ==

== ENCOUNTER 2025-04-14 13:14 | Inpatient (IN) | payer SELFPAY ==
--- NOTE | 2025-04-14 13:25 | ED.C_ITS ---
<Statement entered by Lazaro Damon MD - 04/14/25 14:03> Patient discussed with me by the PA, coming in with suicidal ideation, medically cleared, admitted to Neuropsych Unit under Dr. Delgado HPI - Psych 2 General: Chief Complaint: Psychiatric Symptoms Stated Complaint: MHE, Depression, Anxiety Time Seen by Provider: 04/14/25 13:16 Source: patient Mode of arrival: EMS Limitations: no limitations History of Present Illness: Patient is a 39-year-old female with past medical history of bipolar disorder and depression who presents the emergency department for mental health evaluation. She had a well check called on her boyfriend, and is over social media was stating that she did not want a be here anymore. Patient tells me that she is still feeling this way, she has no specific plan of how she would kill herself but has had a history of suicidal ideation in the past with specific plan. No homicidal ideations or hallucinations. She states that she thinks her meds are not working and they have not been working for a while, as she states that she is frequently anxious and tired and unable to concentrate on daily activities. Reviewing med list appears that she is on BuSpar and citalopram. Denies any drug or alcohol use. complaint: suicidal ideation and feels depressed Duration: constant History of same: Yes Relieving factors: none Context: significant life stressor Associated symptoms: Reports depression and suicidal ideation; Deny auditory hallucinations, visual hallucinations or homicidal ideation If self harm: admits thoughts of self harm Related Data Previous Rx's ?Medication ?Instructions ?Recorded blood-glucose meter #1 ea 06/29/22 ferrous sulfate 325 mg (65 mg 325 mg PO BIDWM #30 tabs 09/02/22 iron) tablet,delayed release ibuprofen 800 mg tablet 800 mg PO TID #60 tabs 09/02 multivitamin no.51-ferrous 1 cap PO BREAKFAST #30 caps 09/02/22 fumarate 106.5 mg-folic acid 1 mg capsule (-U) sulfamethoxazole 800 1 tab PO BID #14 tabs mg-trimethoprim 160 mg tablet (Bactrim DS) buspirone 5 mg tablet 5 mg PO TID #90 tabs 5 citalopram 20 mg tablet 20 mg PO DAILY #30 tabs 0501/20 Allergies Allergy/AdvReac Type Severity Reaction Status Date / Time adhesive tape Allergy Mild rash Verified 07/24/23 09:03 Review of Systems 2 General: Reports: 10 or more systems reviewed and unremarkable except in HPI and below Const: Reports: fatigue; Denies: fever(s) or chills Eyes: Denies: change in vision ENMT: Denies: throat pain, ear or mastoid pain or nasal discharge Card: Denies: chest pain, palpitations, swelling of feet/ankles or lightheadedness Resp: Denies: dyspnea, productive cough or wheezing GI: Denies: abdominal pain, nausea, vomiting, diarrhea or constipation : Denies: flank pain, difficulty voiding, dysuria or urinary frequency Musc: Denies: neck pain, back pain or joint pain Skin/Breast: Denies: rash Neuro: Denies: headache(s), numbness in extremities or weakness in extremities Psych: Reports: anxiety, depression and suicidal ideation; Denies: difficulty concentrating, visual hallucinations, auditory hallucinations, tactile hallucinations or homicidal ideation PFSH ED 2 PFSH: Medical History Exposure to COVID-19 virus Gestational diabetes Hx of bipolar disorder Depression Surgical History History of bilateral tubal ligation Status post section History of cholecystectomy Family History Mother Hypertension Denies family history of Colon cancer Ovarian cancer Diabetes Heart disease Hypercholesteremia Breast cancer Uterine cancer Thyroid disease Stroke Social History Substance/Drug Use: never Female Reproductive History: Para: 3 Physical Exam 2 Const: COMMON NORMALS: no acute distress, patient oriented x3 and no limitations GENERAL APPEARANCE: cooperative, comfortable and well developed ORIENTATION/CONSCIOUSNESS: Yes awake, Yes oriented to person, Yes oriented to place and Yes oriented to time HENMT: COMMON NORMALS: normocephalic, atraumatic and hearing grossly normal bilaterally HEAD & SCALP: normocephalic and atraumatic Eye: COMMON NORMALS: Equal, round and reactive pupils present, EOMs intact bilaterally and conjunctivae normal CONJUNCTIVA: Yes conjunctivae normal P UPIL: Yes Equal, round and reactive pupils present Neck/C-Spine: COMMON NORMALS: full ROM, supple and no JVD Resp: COMMON NORMALS: normal respiratory effort, No retractions, No use of accessory muscles and clear to auscultation bilaterally AUSCULTATION: clear to auscultation bilaterally Cardio: COMMON NORMALS: no JVD, regular rate, regular rhythm, No clicks present (Cardio), No murmurs present (Cardio) and No rub (Cardio) RATE: r egular rate RHYTHM: regular rhythm GI: COMMON NORMALS: Normal to inspection, nondistended, normoactive bowel sounds present, Soft to palpation and non-tender AUSCULTATION: Yes normoactive bowel sounds PALPATION: Yes Soft to palpation RECTAL EXAM: d eferred Extremity: COMMON NORMALS: normal to inspection, full ROM and capillary refill normal Neuro: COMMON NORMALS: patient oriented x3, moves all extremities, no focal motor deficits and no sensory deficits noted SENSORIUM/ORIENTATION: Yes oriented to person, Yes oriented to place and Yes oriented to time Psych: COMMON NORMALS: Normal thought process present and speech normal A PPEARANCE: Yes grossly normal ATTITUDE: Yes calm ACTIVITY/MOTOR BEHAVIOR: Yes Avoids eye contact (attititude/behavior) SPEECH: Yes normal speech M OOD & AFFECT: Yes depressed mood and Yes anxious THOUGHT PROCESS: Normal thought process present THOUGHT CONTENT: Yes Suicidality present, No Homicidality present and No Hallucination(s) present Skin: COMMON NORMALS: no rashes or lesions noted GENERAL SKIN EXAM: no rashes or lesions noted Course 2 Vital Signs: Vital signs: Vital Signs Temperature 97.6 F 04/14/25 13:26 Pulse Rate 58 L 04/14/25 13:26 Respiratory Rate 18 04/14/25 13:26 Blood Pressure 109/67 04/14/25 13:26 Pulse Oximetry 98 04/14/25 13:26 Oxygen Delivery Me thod Room Air 04/14/25 13:26 MDM - Psych Medical Decision Making Patient presenting by ambulance after well check was called on her by a friend, was making concerning statements of being depressed and there was concern that potentially she was making some suicidal statements. Though she is not suicidal here with no plan, she does endorse that she has been depressed and fatigued for a while and thinks meds are not working, and does have a history of suicidal ideation with plan. Preadmission labs obtained, she is cleared from a medical standpoint. I spoke to on-call psychiatrist, Dr. Delgado, who feels this would best be served admitted to neuropsychiatric unit for further evaluation. I talked to both the patient and patient's in regards to this plan, they both are in agreement and all other questions and concerns are addressed. I spoke to Dr. Damon in regards to this patient's case, who will put in admit orders at this time. Lab Data 04/14/25 13:28 04/14/25 13:28 Laboratory Results WBC 4.92 10^3/uL (3.29-11.43) 04/14/25 13:28 RBC 3.86 10^6/uL (3.85-5.65) 04/14/25 13:28 Hgb 12.60 g/dL (11.27-16.99) 04/14/25 13:28 Hct 37.3 % (36-47) 04/14/25 13:28 MCV 96.6 fl (85-98) 04/14/25 13:28 MCH 32.6 pg (27-33) 04/14/25 13:28 MCHC 33.8 g/dL (30-55) 04/14/25 13:28 RDW 12.1 % (12.1-15.1) 04/14/25 13:28 Plt Count 240 10^3/cmm (157-399) 04/14/25 13:28 MPV 10.3 fL (7.4-10.4) 04/14/25 13:28 Neut % (Auto) 47.3 % 04/14/25 13:28 Lymph % (Auto) 40.9 % 04/14/25 13:28 [place] % (Auto) 7.3 % 04/14/25 13:28 Eos % (Auto) 3.9 % 04/14/25 13:28 Baso % (Auto) 0.6 % 04/14/25 13:28 Neut # (Auto) 2.33 10^3/uL (1.8-7.7) 04/14/25 13:28 Lymph # (Auto) 2.0 10^3/uL (0.8-4.8) 04/14/25 13:28 [place] # (Auto) 0.4 10^3/uL (0.2-0.9) 04/14/25 13:28 Eos # (Auto) 0.2 10^3/uL (0.0-0.8) 04/14/25 13:28 Baso # (Auto) 0.0 10^3/uL (0.0-0.1) 04/14/25 13:28 Nucleated RBC % (auto) 0 % 04/14/25 13:28 Nucleated RBCs # 0.0 /100WBC 04/14/25 13:28 HCG, Qual Negative (Negative) 04/14/25 13:28 No radiology studies performed this visit Discharge Plan Discharge Patient Disposition: Admitted As Inpatient Clinical Impression: Suicidal ideation Condition: Stable Coding Level of Care Code ED Teletype Mechanic for Lucian Jc
[2025-04-14 13:26] VITALS: BP 109/67; PULSE 58; RESP 18; TEMP 36.4; O2SAT 98
[2025-04-14 13:35] LABS: Hematocrit 37.3 % (36-47); Hemoglobin 12.60 g/dL (11.27-16.99); Mean Corpuscular HGB Conc 33.8 g/dL (30-55); Mean Corpuscular Hemoglobin 32.6 pg (27-33); Mean Corpuscular Volume 96.6 fl (85-98); Nucleated Red Blood Cells % 0 %; Platelet Count 240 10^3/cmm (157-399); Red Blood Count 3.86 10^6/uL (3.85-5.65); White Blood Count 4.92 10^3/uL (3.29-11.43)
[2025-04-14 13:47] LABS: HCG, Serum Qual Negative (Negative)
[2025-04-14 14:01] LABS: Alanine Aminotransferase 8 U/L (0-33); Albumin Level 4.3 g/dL (3.5-5.2); Alkaline Phosphatase 69 U/L (35-105); Anion Gap 13.0 (5-19); Aspartate Amino Transferase 13 U/L (0-32); Blood Urea Nitrogen 14 mg/dL (6-20); Calcium 8.9 mg/dL (8.5-10.5); Carbon Dioxide 27 mmol/L (22-29); Chloride 105 mmol/L (98-107); Globulin 2.5 g/dL (1.3-4.6); Glucose 100 mg/dL (65-115); Osmolality Calculated 293 mOsm/kg (285-295); Potassium 4.0 mmol/L (3.5-5.1); Sodium 141 mmol/L (136-145); Total Protein 6.8 g/dL (6.6-8.7)
[2025-04-14 14:04] LABS: Acetaminophen < 5.0 ug/mL (10-30); Alcohol Level < 10 mg/dL (0-10); Salicylate < 0.3 mg/dL (3-10)
[2025-04-14 14:05] VITALS: RESP 18; O2SAT 100
[2025-04-14 14:58] VITALS: BP 120/73; PULSE 72; RESP 16; TEMP 36.9; O2SAT 98
--- NOTE | 2025-04-14 16:07 | W.ED.PSYCHS ---
HPI - Psych General: Chief Complaint: Psychiatric Symptoms Stated Complaint: MHE, Depression, Anxiety Time Seen by Provider: 04/14/25 13:16 Source: patient Mode of arrival: EMS History of Present Illness: Duration: constant Relieving factors: none Related Data Previous Rx's ?Medication ?Instructions ?Recorded blood-glucose meter #1 ea 06/29/22 buspirone 5 mg tablet 5 mg PO TID #90 tabs 12/01/24 citalopram 20 mg tablet 20 mg PO DAILY #30 tabs 12/01/24 Allergies Allergy/AdvReac Type Severity Reaction Status Date / Time adhesive tape Allergy Mild rash Verified 07/24/23 09:03 [facility] ED PFSH: Medical History (Updated 04/14/25 @ 14:00 by AUSTEN Krishnamurthy) Exposure to COVID-19 virus Gestational diabetes Hx of bipolar disorder Depression Surgical History History of bilateral tubal ligation Status post section History of cholecystectomy Family History Mother Hypertension Denies family history of Colon cancer Ovarian cancer Diabetes Heart disease Hypercholesteremia Breast cancer Uterine cancer Thyroid disease Stroke Social History Substance/Drug Use: never Female Reproductive History: Para: 3 Course Vital Signs: Vital signs: Vital Signs Temperature 97.6 F 04/14/25 13:26 Pulse Rate 58 L 04/14/25 13:26 Respiratory Rate 18 04/14/25 14:05 Blood Pressure 109/67 04/14/25 13:26 Pulse Oximetry 100 04/14/25 14:05 Oxygen Delivery Me thod Room Air 04/14/25 14:05 MDM - Psych Lab Data 04/14/25 13:28 04/14/25 13:28 Laboratory Results WBC 4.92 10^3/uL (3.29-11.43) 04/14/25 13:28 RBC 3.86 10^6/uL (3.85-5.65) 04/14/25 13:28 Hgb 12.60 g/dL (11.27-16.99) 04/14/25 13:28 Hct 37.3 % (36-47) 04/14/25 13:28 MCV 96.6 fl (85-98) 04/14/25 13:28 MCH 32.6 pg (27-33) 04/14/25 13:28 MCHC 33.8 g/dL (30-55) 04/14/25 13:28 RDW 12.1 % (12.1-15.1) 04/14/25 13:28 Plt Count 240 10^3/cmm (157-399) 04/14/25 13:28 MPV 10.3 fL (7.4-10.4) 04/14/25 13:28 Neut % (Auto) 47.3 % 04/14/25 13:28 Lymph % (Auto) 40.9 % 04/14/25 13:28 [place] % (Auto) 7.3 % 04/14/25 13:28 Eos % (Auto) 3.9 % 04/14/25 13:28 Baso % (Auto) 0.6 % 04/14/25 13:28 Neut # (Auto) 2.33 10^3/uL (1.8-7.7) 04/14/25 13:28 Lymph # (Auto) 2.0 10^3/uL (0.8-4.8) 04/14/25 13:28 [place] # (Auto) 0.4 10^3/uL (0.2-0.9) 04/14/25 13:28 Eos # (Auto) 0.2 10^3/uL (0.0-0.8) 04/14/25 13:28 Baso # (Auto) 0.0 10^3/uL (0.0-0.1) 04/14/25 13:28 Nucleated RBC % (auto) 0 % 04/14/25 13:28 Nucleated RBCs # 0.0 /100WBC 04/14/25 13:28 Sodium 141 mmol/L (136-145) 04/14/25 13:28 Potassium 4.0 mmol/L (3.5-5.1) 04/14/25 13:28 Chloride 105 mmol/L (98-107) 04/14/25 13:28 Carbon Dioxide 27 mmol/L (22-29) 04/14/25 13:28 Anion Gap 13.0 (5-19) 04/14/25 13:28 BUN 14 mg/dL (6-20) 04/14/25 13:28 Creatinine 0.8 mg/dL (0.5-0.9) 04/14/25 13:28 GFR Calculation 80.7 mL/min (90-130) L 04/14/25 13:28 Glucose 100 mg/dL (65-115) 04/14/25 13:28 Calculated Osmolality 293 mOsm/kg (285-295) 04/14/25 13:28 Calcium 8.9 mg/dL (8.5-10.5) 04/14/25 13:28 Total Bilirubin 0.3 mg/dL (0.15-1.2) 04/14/25 13:28 AST 13 U/L (0-32) 04/14/25 13:28 ALT 8 U/L (0-33) 04/14/25 13:28 Alkaline Phosphatase 69 U/L (35-105) 04/14/25 13:28 Total Protein 6.8 g/dL (6.6-8.7) 04/14/25 13:28 Albumin 4.3 g/dL (3.5-5.2) 04/14/25 13:28 Globulin 2.5 g/dL (1.3-4.6) 04/14/25 13:28 HCG, Qual Negative (Negative) 04/14/25 13:28 Salicylates < 0.3 mg/dL (3-10) L 04/14/25 13:28 Acetaminophen < 5.0 ug/mL (10-30) L 04/14/25 13:28 Ethyl Alcohol < 10 mg/dL (0-10) 04/14/25 13:28 Discharge Plan Discharge Patient Disposition: Admitted As Inpatient Admit Provider: Marlon Delgado Clinical Impression: Suicidal ideation Condition: Stable Coding Level of Care Code ED Manager Acquisition for Lucian Jc
--- NOTE | 2025-04-14 16:11 | PC.ADMIT ---
[email or web address] [facility] Admission Note:Pt was brought in by EMS after PD was called for a wellness check. Pt states that she believes it was a friend that she was talking to and she had told her God be ready because I am She states that she just feels drained of the world, life in general wears her down. She states that her grandma is not well and she has just been busy with kids. 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 She has decided to check in voluntarily without affidavit. She was given a PO ativan in ER to help with anxiety. There is a permanent ankle bracelet on her Rt ankle. Will get Dr Delgado permission to keep it. The patient,Bertha Robles,39 y/o, was given written information regarding hospital policies, unit procedures and contact persons. Patient's smoking status: . Vital Signs - 8 hr 04/14/25 13:26 04/14/25 14:05 Temperature 97.6 F Pulse Rate 58 L Respiratory Rate 18 18 Blood Pressure 109/67 Pulse Oximetry 98 100 Oxygen Delivery Method Room Air Room Air
--- NOTE | 2025-04-14 18:05 | W.PM.NPUH&PS ---
Providers/Chief Complaint Admitting Physician: Marlon Delgado MD Primary Care Provider: Vern Montoya MD Chief Complaint: MHE, Depression, Anxiety HPI NPU History of Present Illness Bertha Robles is a 39 year old female who presented to the emergency department with the following report: Chief Complaint: Psychiatric Symptoms Stated Complaint: MHE, Depression, Anxiety Time Seen by Provider: 04/14/25 13:16 Source: patient Mode of arrival: EMS Limitations: no limitations History of Present Illness: Patient is a 39-year-old female with past medical history of bipolar disorder and depression who presents the emergency department for mental health evaluation. She had a well check called on her boyfriend, and is over social media was stating that she did not want a be here anymore. Patient tells me that she is still feeling this way, she has no specific plan of how she would kill herself but has had a history of suicidal ideation in the past with specific plan. No homicidal ideations or hallucinations. She states that she thinks her meds are not working and they have not been working for a while, as she states that she is frequently anxious and tired and unable to concentrate on daily activities. Reviewing med list appears that she is on BuSpar and citalopram. Denies any drug or alcohol use. MD complaint: suicidal ideation and feels depressed Duration: constant History of same: Yes Relieving factors: none Context: significant life stressor Associated symptoms: Reports depression and suicidal ideation; Deny auditory hallucinations, visual hallucinations or homicidal ideation If self harm: admits thoughts of self harm She was admitted to the neuropsychiatric unit for definitive treatment of those issues. She is known to [facility] through inpatient and outpatient services. An excerpt of her last inpatient hospitalization from January 2018 is included below for historical context. She had outpatient services at [facility] for close to a decade through 2018 when she had her last health appointments. She has since been managing her medications through her primary care physician Dr. Montoya. She presented without a UDS and with an unremarkable BAL. Her presentation was initially driven by the fact that there was some issue from her and her 's perspective about how the report of her being admitted or even the fact that she was even advised to be being admitted took place. A large portion of the interview was spent talking to her and her about the process of her admission, what she was told, what her expectations were and why she was being admitted. She presented with law enforcement after making suicidal comments to a so-called friend. She endorsed reporting that if it was Karlo's will she was ready to essentially. That prompted a well check which led to an officer coming to her place of employment and inquiring about the statements she had made. She informed him of said statements and he was also concerned and reported that that left him no choice but to take her to the emergency department for assessment. Patient has a history of suicidality and the past hospitalization as noted below and identified that she also told her friend that her medications were not working for depression and anxiety which we discussed obviously played a role in her being okay with dying. We discussed the fact that I am depressed nonsuicidal people that have children and 's and are happy do not at her age suggest that dying is a reasonable option at this point. We discussed given her history that that combination, her medication not working and her having no viable option for improvements made admission the appropriate choice. She expressed the fact that she did not want to stay and we discussed the fact that the decision about inpatient hospitalization does not about want but about need and based on her current circumstance it was this television writer's position that she needed to be admitted. Her was quite upset feeling that he had been misled and even being upset because they want to sign out AMA but they did not appreciate that this television writer was of the opinion that if she did not voluntarily stay that the right thing to do would be to put her on a 96-hour hold. He expressed a plan to take this all the way to the new [employer] and express negative feelings towards the world today and this hospital now and historically. Ultimately patient decided to stay and we reviewed her medications. She has been on Celexa 20 mg for approximately 7 years we had a lengthy discussion about both the ceiling of Celexa being 40 by most practitioners position and the fact that at some point in the process this medication should have been increased. However we discussed the fact that since Celexa ceiling is 40 that the right thing to do would be to transition to Lexapro she also has a ceiling of 40 mg by most practitioner standards but is likely at least 2 times as potent and is one of the stereo isomers of Celexa which should make a transition seamless. We discussed that we have concerns about her not being treated by psychiatry as she is missing on the expertise that would have likely lead to this being increased 6-1/2 years ago. Additionally she is on BuSpar 5 mg p.o. 3 times daily which again is a gross under dosing of the medication if there is evidence of its effectiveness. We discussed the risks, benefits and alternatives of increasing that to 10 mg p.o. 3 times daily along with the change in the SSRI. We discussed the goal of identifying the benefit from the Lexapro and then ultimately discharging her on the plan that would lead to her being on 20 mg of Lexapro and the Celexa being discontinued. We also discussed the possibility of adding Wellbutrin XL in the morning once we have had a discussion about how she is feeling overall. She had no indication of why she feels things have gotten to such a low point as she seems to have a connected relationship with her and has children and what would be considered reasons to live. We discussed a plan to meet again in the morning and to review her history further. Per her 01/30/2018 [facility] inpatient psychiatric discharge summary: Date of Admission: Jan 28, 2018 at 19:28 Discharge Date: Jan 30, 2018 Attending Physician: Maxx Forte MD Consulting Physician(s): Admission Diagnosis: 1. Major depressive disorder recurrent 2. depression 3. Acute psychosis 4. Suicidal ideation 5. Anxiety Discharge Diagnosis: (1) Major depressive disorder, recurrent Status: Chronic Qualifiers: Qualified Codes: F33.2 - Major depressive disorder, recurrent severe without psychotic features (2) depression associated with second Status: Chronic (3) Acute psychosis Status: Resolved Resolution Date/Time: 01/30/18 @ 10:47 (4) Suicidal ideation Status: Resolved Resolution Date/Time: 01/30/18 @ 10:47 (5) Anxiety Status: Chronic Brief History: Ms. Robles is a 32-year-old female who is known to our behavioral health services who was admitted from [facility] ED with a complaint of worsening depression and associated auditory hallucinations that have been present worsening over the course of past 3 months and are now severe. Patient gave to her second child in July 2017, and she reports that in September 2017 she started to notice that her mood symptoms were worsening. She describes depression characterized by depressed mood, low self-esteem, negative self talk, hopelessness, low energy, low motivation, and eventually associated with auditory hallucinations that started off as derogatory, and as we progressed became to be command in nature, making suggestions for her to harm herself. He admits to associated anxiety, and at times increasing paranoia. She denies any alcohol use, denies any substance use. She reports a previous history of depression in the period with the of her son 2 years ago showing up in a similar pattern, but the difference this time around is that the symptoms appear to be more intense, and auditory hallucinations are present. Denies any symptoms consistent with layla, hypomania. She does report a previous history of PTSD, and states that her sleep is been disruptive that she's been experiencing increased nighttime hyper arousal. Hospital Course: Patient was admitted to the NPU, and targets for treatment were management of depression with associated psychotic symptoms. She was started on sertraline combined with clonazepam and Abilify which she tolerated without difficulty. On the day of discharge patient requested discharge to home as her psychotic symptoms were much improved. After elaborate discussion with regard to the potential benefits of staying in the hospital we agreed to discharge her with the following conditions: have her follow-up appointment will be within the next week to 2 weeks, that her is aware that she is being discharged home unaware for treatment plan. She denied any suicidal ideation, she also for a denied any cough. As to what her children. Review of record indicates that her previous experiences of depression that there there were no thoughts of if I decide or harming her child. Patient does have very good family support at home. During the course of this hospitalization she tolerated unit program without any difficulty and there were no behavioral disturbances. Disposition: Discharged home Condition at Discharge: DISCHARGE CONDITION: Improved and stable: patient is able to contract for safety in the community and is not a danger to self or others. New Medications: Benztropine Tab (Cogentin Tab) 0.5 Mg Tablet 0.5 MG PO DAILY, #30 TAB 1 Refill Take 1 tablet once daily with Abilify Aripiprazole Tab (Abilify Tab) 10 Mg Tab 10 MG PO DAILY, #30 TAB 1 Refill Take 1 tablet once daily Clonazepam Tab (Klonopin Tab) 0.5 Mg Tablet 0.5 MG PO BID, #60 TAB 1 Refill Take 1 tablet in the morning and 1 tablet at bedtime Sertraline Tab (Zoloft Tab) 50 Mg Tablet 50 MG PO DAILY, #60 TAB 1 Refill Take 1 tablet once daily for 1 week then increase to 2 tablets once daily Trazodone Tab (Trazodone Tab) 50 Mg Tab 25 MG PO BEDTIME PRN for FOR SLEEP, #30 TAB 1 Refill Take one half tablet at bedtime as needed for sleep Meds NPU Home Medications ?Medication ?Instructions ?Recorded ?Confirmed ?Last Taken ?Type blood-glucose meter #1 ea 06/29/22 04/14/25 Unknown Rx buspirone 5 mg tablet 5 mg PO TID #90 tabs 12/01/24 04/14/25 04/13/25 Rx citalopram 20 mg tablet 20 mg PO DAILY #30 tabs 12/01/24 04/14/25 04/13/25 Rx Allergies Allergy/AdvReac Type Severity Reaction Status Date / Time adhesive tape Allergy Mild rash Verified 07/24/23 09:03 PFS NPU PFSH: Medical History (Updated 04/15/25 @ 07:40 by Marlon Delgado MD) Exposure to COVID-19 virus Gestational diabetes Hx of bipolar disorder Depression Surgical History History of bilateral tubal ligation Status post section History of cholecystectomy Family History Mother Hypertension Denies family history of Colon cancer Ovarian cancer Diabetes Heart disease Hypercholesteremia Breast cancer Uterine cancer Thyroid disease Stroke Social History Substance/Drug Use: never Female Reproductive History: Para: 3 Mental Status Exam MSE Comments: This is an overweight white female in hospital scrubs with adequate grooming and eye contact. No abnormal movements except for psychomotor retardation. Mostly cooperative with exam and moderate distress. Speech was normal rate and decreased volume. Mood described as depressed, affect congruent and near tearful. Thought process organized. Thought content: Patient endorses suicidal ideation without a plan but denied homicidal ideation, there were no delusions reported or noted, she denied any auditory or visual hallucinations. Attention and concentration appeared intact and memory was reliable but none were formally tested. She is alert and oriented x 3. Insight and judgment appear fair impulse control limited. Vitals/I&O/Wt Last Vital Signs Temp 97.6 F 04/14/25 13:26 Pulse 58 L 04/14/25 13:26 Resp 18 04/14/25 14:05 BP 109/67 04/14/25 13:26 Pulse Ox 100 04/14/25 14:05 O2 Del Method Room Air 04/14/25 15:08 Data NPU 04/14/25 13:28 04/14/25 13:28 A&P Assessment and plan 1. Major depressive disorder, recurrent: 2. Suicidal ideation: Plan: This is a 39-year-old white female with a long history of mental health issues including depression and suicidality who presents to the hospital after making some suicidal statements that were acknowledged by a friend initially which led to a well check which led to her being brought to the hospital and admitted as she endorsed that her medications were not working. 1. Continue current medication. Start Lexapro 10 mg p.o. daily with a plan to transition to Lexapro as her standing depressant and may consider Wellbutrin XL in the morning. 2. Continue every 15 minute checks for safety. 3. Encourage individual, group and milieu therapies. 4. Obtain collateral information. PDMP PDMP Reviewed: Not Reviewed Attestations NPU Medical Necessity Statement*: Inpatient hospitalization is medically necessary with the clinically appropriate intervention as time. We will monitor/initiate medications and make changes as indicated. She will be in the hospital for over 2 midnights. Likely length of stay 2 to 4 days. Coding Level of Care Code Acute Code for Chg Fwd Diagnoses Major depressive disorder, recurrent F33.9 Suicidal ideation R45.851
[2025-04-14 20:00] VITALS: BP 94/54; PULSE 70; RESP 16; O2SAT 96
[2025-04-15 06:00] VITALS: BP 108/58; PULSE 76; RESP 16; TEMP 37; O2SAT 98
[2025-04-15 08:10] LABS: PCP Screen Urine Negative (Negative)
[2025-04-15 13:49] VITALS: BP 107/46
[2025-04-15 13:51] VITALS: BP 94/57; PULSE 62; RESP 18; O2SAT 96
[2025-04-15 14:04] VITALS: BP 94/57; PULSE 62; RESP 18; TEMP 37; O2SAT 96
--- NOTE | 2025-04-15 14:46 | P.NPUDS_ITS ---
Diagnoses at Discharge Discharge Diagnosis 1. Major depressive disorder, recurrent: 2. Suicidal ideation: Reason for Visit Reason for Visit: MHE, Depression, Anxiety Involuntary Hold Information Hold Status: Date/Time Hold Expires: voluntary Mental Status Exam MSE Comments: This is an overweight white female in hospital scrubs with adequate grooming and eye contact. No abnormal movements except for psychomotor retardation. Mostly cooperative with exam and moderate distress. Speech was normal rate and decreased volume. Mood described as depressed, affect congruent and near tearful. Thought process organized. Thought content: Patient endorses suicidal ideation without a plan but denied homicidal ideation, there were no delusions reported or noted, she denied any auditory or visual hallucinations. Attention and concentration appeared intact and memory was reliable but none were formally tested. She is alert and oriented x 3. Insight and judgment appear fair impulse control limited. Discharge Data Studies Completed and Pending: Laboratory Results WBC 4.92 10^3/uL (3.2 9-11.43) 04/14/25 13:28 RBC 3.86 10^6/uL (3.8 5-5.65) 04/14/25 13:28 Hgb 12.60 g/dL (11.27 -16.99) 04/14/25 13:28 Hct 37.3 % (36-47) 04/14/25 13:28 MCV 96.6 fl (85-98) 04/14/25 13:28 MCH 32.6 pg (27-33) 04/14/25 13:28 MCHC 33.8 g/dL (30-55) 04/14/25 13:28 RDW 12.1 % (12.1-15.1 ) 04/14/25 13:28 Plt Count 240 10^3/cmm (157 -399) 04/14/25 13:28 MPV 10.3 fL (7.4-10.4 ) 04/14/25 13:28 Neut % (Auto) 47.3 % 04/14/25 13:28 Lymph % (Auto) 40.9 % 04/14/25 13:28 [place] % (Auto) 7.3 % 04/14/25 13:28 Eos % (Auto) 3.9 % 04/14/25 13:28 Baso % (Auto) 0.6 % 04/14/25 13:28 Neut # (Auto) 2.33 10^3/uL (1.8 -7.7) 04/14/25 13:28 Lymph # (Auto) 2.0 10^3/uL (0.8- 4.8) 04/14/25 13:28 [place] # (Auto) 0.4 10^3/uL (0.2- 0.9) 04/14/25 13:28 Eos # (Auto) 0.2 10^3/uL (0.0- 0.8) 04/14/25 13:28 Baso # (Auto) 0.0 10^3/uL (0.0- 0.1) 04/14/25 13:28 Nucleated RBC % (a uto) 0 % 04/14/25 13:28 Nucleated RBCs # 0.0 /100WBC 04/14/25 13:28 Sodium 141 mmol/L (136-1 45) 04/14/25 13:28 Potassium 4.0 mmol/L (3.5-5 .1) 04/14/25 13:28 Chloride 105 mmol/L (98-10 7) 04/14/25 13:28 Carbon Dioxide 27 mmol/L (22-29) 04/14/25 13:28 Anion Gap 13.0 (5-19) 04/14/25 13:28 BUN 14 mg/dL (6-20) 04/14/25 13:28 Creatinine Cancelled 04/15/25 06:47 GFR Calculation 80.7 mL/min (90-1 30) L 04/14/25 13:28 Glucose 100 mg/dL (65-115 ) 04/14/25 13:28 Specific Percival Cancelled 04/15/25 06:47 Calculated Osmolal ity 293 mOsm/kg (285- 295) 04/14/25 13:28 Calcium 8.9 mg/dL (8.5-10 .5) 04/14/25 13:28 Total Bilirubin 0.3 mg/dL (0.15-1 .2) 04/14/25 13:28 AST 13 U/L (0-32) 04/14/25 13:28 ALT 8 U/L (0-33) 04/14/25 13:28 Alkaline Phosphata se 69 U/L (35-105) 04/14/25 13:28 Total Protein 6.8 g/dL (6.6-8.7 ) 04/14/25 13:28 Albumin 4.3 g/dL (3.5-5.2 ) 04/14/25 13:28 Globulin 2.5 g/dL (1.3-4.6 ) 04/14/25 13:28 HCG, Qual Negative (Negati ve) 04/14/25 13:28 Urine pH Cancelled 04/15/25 06:47 Urine Oxidant Cancelled 04/15/25 06:47 Salicylates < 0.3 mg/dL (3-10 ) L 04/14/25 13:28 Urine Opiates Scre en Negative ng/mL (N egative) 04/14/25 06:47 Urine Opiates Leve l Cancelled 04/15/25 06:47 Urine Oxycodone Cancelled 04/15/25 06:47 U Methadone Metabo lites Cancelled 04/15/25 06:47 Acetaminophen < 5.0 ug/mL (10-3 0) L 04/14/25 13:28 Barbiturates Cancelled 04/15/25 06:47 Ur Barbiturates Sc reen Negative ng/mL (N egative) 04/14/25 06:47 Phencyclidine (PCP ) Cancelled 04/15/25 06:47 Ur Phencyclidine S crn Negative ng/mL (N egative) 04/14/25 06:47 Amphetamines Cancelled 04/15/25 06:47 Ur Amphetamines Sc reen Negative ng/mL (N egative) 04/14/25 06:47 Benzodiazepines Cancelled 04/15/25 06:47 U Benzodiazepines Scrn Positive ng/mL (N egative) H 04/14/25 06:47 Cocaine Metabolite Cancelled 04/15/25 06:47 Urine Cocaine Scre en Negative ng/mL (N egative) 04/14/25 06:47 U Marijuana (THC) Screen Positive ng/mL (N egative) H 04/14/25 06:47 U Marijuana Metabo lites Cancelled 04/15/25 06:47 Abn Spec Valid Rakesh g Scn Cancelled 04/15/25 06:47 Urine Drug Screen Note Cancelled 04/15/25 06:47 Ur Drug Screen Com ment Cancelled 04/15/25 06:47 Ethyl Alcohol < 10 mg/dL (0-10) 04/14/25 13:28 Vitals: Last Vital Signs Temp 98.6 F 04/15/25 14:04 Pulse 62 04/15/25 14:04 Resp 18 04/15/25 14:04 BP 94/57 04/15/25 14:04 Pulse Ox 96 04/15/25 14:04 O2 Del Method Room Air 04/15/25 06:00 Discharge Plan Discharge Patient Disposition: Home Condition: Stable Prescriptions: New buspirone 10 mg Tablet 10 mg PO TID 30 Days Qty: 90 1RF escitalopram oxalate 20 mg tablet 20 mg PO DAILY 30 Days Qty: 30 1RF Rx Instructions: Take 1/2 tablet for 4 days and then increase to 1 tablet Continued citalopram 20 mg tablet 20 mg PO DAILY Qty: 30 6RF Rx Instructions: Take for 4 days and discontinue Discontinued buspirone 5 mg tablet 5 mg PO TID Qty: 90 6RF No Action (DME) blood-glucose meter Kit See Rx Instructions .Route Qty: 1 0RF Rx Instructions: As directed Discharge Order = DC NOW: Discharge Order (Routine); Ordered 04/15/25 Ordered By: Marlon Delgado Referrals: [facility] [Outside] - 04/20/25 8:30 am Referral Note: Initial assessment for services with Vern Chapin MD [Primary Care Provider, Family Practice] Discharge Diet: Regular Discharge Activity: Resume usual activity Patient Instructions: Opioid Safety, Patient Portal & Araceli Instructions Discharge Attestations NPU Time Spent in Discharge Care*: greater than 30 min Specific Discharge Activities: Specific discharge activities: educating patient, discussing with pcp/other providers (Working with administration on the issues surrounding the family's concerns about her admission.), discussing with sample case porter/social workers/dc planners, documenting/other paperwork and evaluating patient/reviewing data Coding Level of Care Code Acute Code for Chg Fwd Diagnoses Major depressive disorder, recurrent F33.9 Suicidal ideation R45.851
== END 2025-04-15 14:46 | disposition home or self-care (01) | DRG 885 ==
LOC: ER 14:37 → NP 14:43
PROVIDERS: Admitting Provider Psychiatry & Neurology Psychiatry; Emergency Provider Physician Assistant; PCP Family Medicine; Visit Provider Psychiatry & Neurology Psychiatry
DX: F33.9 Major depressive disorder, recurrent, unspecified (principal); R45.851 Suicidal ideations; F41.9 Anxiety disorder, unspecified
CPT/HCPCS: 36415; 80053; 80306; 80307; 84703; 85025; 97165; 99285; J9999